=== PATIENT | female | born 2000 | race Caucasian/White ===

== ENCOUNTER 2018-05-18 23:03 | Inpatient (IN) | payer OTHER, SELFPAY ==
[2018-05-18] MEDS ORDERED: Sodium Bicarb 50 MEQ/50 ML Abboject 8.4% SYRINGE ONE ×3 (23:10→23:21)
[2018-05-18] MEDS ORDERED: Sodium Bicarbonate 2.5 MEQ/5 ML VIAL ONE (23:10)
[2018-05-18] MEDS ORDERED: Sodium Bicarbonate 150 MEQ in Dextrose 5% in Water 1,000 ML IV SCH (23:15)
[2018-05-18 23:21] LABS: Base Excess-Venous 1.3 mmol/L (0 (+/- 2.5)); Bicarbonate (HCO3v) 26.7 mmol/L (1.0-85.0); CO2 Tension (PvCO2) 44.7 mmHg (41.0-51.0); Calcium, Ionized 0.99 mmol/L (1.12-1.32); Hemoglobin - Calc 10.5 g/dL (12.0-18.0); O2 Tension (PvO2) 207.1 mmHg (35.0-45.0); Potassium 3.3 mmol/L (3.4-4.7); T. Carbon Dioxide 28.1 mmol/L (1.0-85.0); pH (Venous) 7.385 (7.35-7.45); vO2 Saturation-calc 99.7 % (94-98)
--- NOTE | 2018-05-18 23:32 | RAD ---
ONE VIEW CHEST: 05/18/18 HISTORY: Status post intubation. Patient overdosed. COMPARISON: None. FINDINGS: Endotracheal tube at the level of the clavicles. Nasogastric tube extends Down the diaphragm. Distal tip is not seen. Normal cardiac silhouette. No consolidation or mass. No p leural effusion. No pneumothorax on this supine projection. No osseous abnormalities. IMPRESSION: Endotracheal tube and nasogastric tube as above. POS: [facility]
[2018-05-18] MEDS ORDERED: Propofol 1,000 MG/100 ML VIAL IV ONE (23:44)
[2018-05-18] MEDS ORDERED: Midazolam HCl 2 mg/2 ml Vial ONE (23:51)
[2018-05-19] MEDS ORDERED: Sodium Bicarb 50 MEQ/50 ML Abboject 8.4% SYRINGE ONE (00:10)
[2018-05-19] MEDS ORDERED: Midazolam HCl 2 mg/2 ml Vial ONE (00:20)
[2018-05-19 00:44] LABS: #Eosinphils 0.2 thou/uL (0.0-0.7); #Lymphocytes 1.2 thou/uL (1.20-3.40); #Monocytes 0.4 thou/uL (0.11-0.59); #Neutrophils 4.5 thou/uL (1.40-6.50); %Basophils 0.5 % (0.0-1.0); %Lymphocytes 18.8 % (28.0-48.0); %Monocytes 6.6 % (0.0-4.0); %Neutrophils 71.1 % (31.0-61.0); Hemoglobin 9.9 g/dL (12.0-16.0); Mean Corpuscular HGB CONC 32.6 g/dL (32.0-36.0); Mean Corpuscular Hemoglobin 25.5 pg (25.0-35.0); Mean Corpuscular Volume 78.4 fL (78.0-98.0); Mean Platelet Volume 9.4 fL (7.4-10.4); Platelet Count 164 thou/uL (130-400); RBC Distribution Width 15.9 % (11.5-14.5); Red Blood Cell (RBC) Count 3.86 mill/uL (4.00-5.20); White Blood Cell (WBC) Count 6.3 thou/uL (4.8-10.8)
[2018-05-19 00:52] LABS: ALT (SGPT) 19 U/L (8-55); AST (SGOT) 25 U/L (5-30); Acetaminophen Less than 6.0 mcg/mL (10.0-30.0); Alcohol Less than 10 mg/dL (Less than 10); Alkaline Phosphatase 97 U/L (40-150); BUN (Urea Nitrogen) 11 mg/dL (8.4-21.0); Bilirubin, Total 0.3 mg/dL (0.2-1.2); Calc. Creatinine Clearance 0 mL/min (70-130); Calcium 8.6 mg/dL (7.8-10.44); Carbon Dioxide 27 mmol/L (22-29); Estimated GFR-MDRD Greater than 90; Glucose 114 mg/dL (70-105); Salicylate Less than 8.0 mg/dL (15.0-30.0)
[2018-05-19] MEDS ORDERED: Propofol 1,000 MG/100 ML VIAL IV ONE (00:54)
[2018-05-19 01:02] LABS: Anion Gap 14 mmol/L (10-20); Chloride 105 mmol/L (98-107); Potassium 3.4 mmol/L (3.5-5.1); Sodium 141 mmol/L (136-145)
[2018-05-19 01:33] LABS: Bilirubin Negative (Negative); Blood, Urine Negative (Negative); Clarity TURBID (Clear); Glucose, Urine (Dipstick) Negative (Negative); Leukocyte Negative (Negative); Nitrite Negative (Negative); Pregnancy Test - Urine (BHCG) Negative (Negative); Pregu Control Background? CLEAR/WHITE (CLR/WHITE); Pregu Control Bar Appear? YES (CONTROL BAR); Protein, Urine (Dipstick) Negative (Neg-Trace); Specific Gravity 1.011 (1.002-1.036); Specific Gravity, Urine 1.011 (1.002-1.036); Urobilinogen 0.2 mg/dL (0.2-1.0); pH, Urine 7.5 (5.0-9.0)
[2018-05-19] MEDS ORDERED: Propofol BOLUS 1,000 MG/100 ML VIAL IV PRN (01:40)
[2018-05-19] MEDS ORDERED: fentaNYL Citrate/PF 2,000 MCG in Sodium Chloride 0.9% 60 ML IV SCH (01:40)
[2018-05-19] MEDS ORDERED: Lorazepam 2 MG/ML VIAL SLOW IVP PRN (01:40)
[2018-05-19] MEDS ORDERED: Fentanyl BOLUS 250 ML IVPB PRN (01:40)
[2018-05-19 01:41] LABS: Amphetamine Not Detected (NotDetected); Barbiturates Screen Not Detected (NotDetected); Benzodiazepine Screen Not Detected (NotDetected); Cocaine Metabolite Screen Not Detected (NotDetected); Medtox Control Line Valid? VALID (VALID); Medtox Reader # READER 1; Methadone Not Detected (NotDetected); Methamphetamine Not Detected (NotDetected); Opiate Screen Not Detected (NotDetected); Oxycodone Screen Not Detected (NotDetected); Phencyclidine (PCP) Not Detected (NotDetected); THC/Cannabinoid Screen Not Detected (NotDetected); Tricyclic Screen Not Detected (NotDetected)
[2018-05-19] MEDS: Propofol 1,000 MG/100 ML VIAL IV PRN ×2 (02:14→05:54)
[2018-05-19] MEDS: Sodium Chloride 0.9% 1,000 ML IV SCH ×3 (02:21→09:51)
[2018-05-19 02:32] LABS: pH, Arterial 7.59 (7.35-7.45)
[2018-05-19 02:33] LABS: ALV-art Gradient 55.125 (0-20); Actual Bicarbonate (HCO3a) 23.8 mEq/L (22-28); Base Excess (BEa) 2.5 mEq/L (-2.0 to +3.0); CO2 Tension 25.5 mmHg (35.0-45.0); Hematocrit-ABG 31.1 % (34.0-44.0); Hemoglobin (Hb) 9.5 g/dL (11.4-15.4); O2 Tension (PaO2) 198.2 mmHg (80.0-100.0); Puncture Site RBRACH
[2018-05-19] MEDS ORDERED: Bisacodyl 10 MG SUPP PR PRN (03:59)
--- NOTE | 2018-05-19 05:23 | HP ---
PRIMARY CARE PHYSICIAN: The patient does not have a PCP. CHIEF COMPLAINT: Suicide attempt. HISTORY OF PRESENT ILLNESS: This 17-year-old female with a history of bipolar disorder prior suicide attempt, mostly with cutting, who presented after being found unarousable by family at 10:00 in the evening. It appears that EMS was called. The patient was intubated in the field with ketamine in ro ck secondary to failure to protect her own airway. The patient had left a suicide note indicating th at this was indeed a suicide attempt and outlining that she had taken 54 pills of 25 mg each amitript yline. In the emergency department, the patient was started on a bicarbonate drip including 3 amps or 150 mE q of bicarbonate and 1 liter normal saline and given a bolus of 3 liters IV fluid. She was started o n a Versed drip and propofol. At the time of my evaluation, the Versed drip has been titrated off. The patient is unable to give a history and she has no family at bedside at this point in time. The patient is intubated and sedated. REVIEW OF SYSTEMS: Unable to obtain secondary to the above. PAST MEDICAL HISTORY: As noted above. Otherwise, no further information available. PAST SURGICAL HISTORY: No prior surgical history. HOME MEDICATIONS: None are currently available beyond her access known to amitriptyline. The family did check medications at home and appears that the patient did not seem to have taken either ibuprof en or acetaminophen at home or any other family members medications during overdose of suicide attemp t. FAMILY HISTORY: No other family history known of suicide attempts. SOCIAL HISTORY: No alcohol, no tobacco, no illicit drug use. Otherwise, social history as above. PHYSICAL EXAMINATION: GENERAL: The patient is intubated, sedated, nonconversant. HEENT: Normocephalic, atraumatic. Slightly dry mucous membranes. ET tube appears in appropriate po sition. CARDIOVASCULAR: S1, S2. No murmurs, rubs or gallops. Pulses 2+ bilateral upper extremities, no pit ting pedal edema. RESPIRATORY: Limited anterior examination. No wheezes, rales or rhonchi. Coarse ventilator sounds throughout. ABDOMEN: Positive bowel sounds and soft. MUSCULOSKELETAL: The patient is currently sedated. LABORATORY DATA AND IMAGING: WBC 6.3, hemoglobin 9.9, hematocrit 30.2, platelet of 164. ABG: a pH of 7.59, pCO2 of 25.5, pO2 of 198. Sodium 141, potassium 3.4, chloride 105, bicarbonate 27, anion ga p of 14, BUN of 11, creatinine 0.66, glucose 114, calcium 8.6, total bilirubin 0.3, AST 25, ALT 19, a lkaline phosphatase 97, total protein 7.0, albumin 4.0. UA significant for ketones of 15. Toxicolog y is essentially negative including salicylate less than 8, acetaminophen less than 6. Plasma alcoho l less than 10. On 05/18/2018, chest x-ray. Impression: "Endotracheal tube and nasogastric tube as above." ASSESSMENT AND PLAN: This is a 17-year-old female, who presented with amitriptyline overdose. The p atient has been intubated to "protect her airway," which suggests that the patient had progressed in her overdose to a stuporous state upon evaluation by EMS. Given the timeframe between potential ashu stion and presentation, no activated charcoal was recommended per Poison Control. Poison Control was contacted by the emergency department as well. The patient has been started on a bicarbonate drip a s noted above. EKGs that I am able to view from the ER department did not demonstrate a QRS complex wider than 100. The patient is currently continued on telemetry and we will continue with serial EKG s. Since the patient is on bicarbonate drip, we will closely monitor the patient's ABG, specifically the patient's pH. Arrange tight goal of 7.5 to 7.55 is desired. As the patient has maintained narr ow QRS complex, if that is continued with the next EKG, we consider down titrating the patient's bica rbonate drip by 25%. I discussed the above with the patient's bedside care team. A consultation for critical care appreciated. 1. Suicide attempt in the setting of bipolar disorder and prior suicidal ideation. The patient will certainly require a psychiatric screening prior to discharge. The patient has not demonstrated any evidence of seizures so far as described per EMS or ER staffing. We will continue to closely monitor the patient's neurological status with benzodiazepines as needed and if needed for any agitation or concern for seizures. 2. Diet: N.p.o. to consider tube feeds if patient requires prolonged intubation. 3. Activity: Currently on bed rest secondary to a need for ventilator support. 4. Deep venous thrombosis prophylaxis. The patient with an extremely guarded prognosis given the agent for her overdose. The patient is cur rently FULL CODE.
[2018-05-19] MEDS ORDERED: Sodium Bicarbonate 150 MEQ in Dextrose 5% in Water 1,000 ML IV SCH (05:30)
[2018-05-19 08:23] LABS: Actual Bicarbonate (HCO3a) 27.1 mEq/L (22-28); Base Excess (BEa) 2.8 mEq/L (-2.0 to +3.0); CO2 Tension 40.1 mmHg (35.0-45.0); O2 Tension (PaO2) 110.8 mmHg (80.0-100.0); pH, Arterial 7.45 (7.35-7.45)
[2018-05-19 08:24] LABS: Hemoglobin (Hb) 10.1 g/dL (11.4-15.4)
[2018-05-19 08:25] LABS: Puncture Site RRA
[2018-05-19 08:26] LABS: ALV-art Gradient 52.975 (0-20)
[2018-05-19] MEDS ORDERED: DC Sedation Protocol FS ONE (08:32)
[2018-05-19] MEDS ORDERED: Sodium Chloride 0.9% 1,000 ML IV SCH (08:33)
--- NOTE | 2018-05-19 09:12 | PDOC.PN ---
- Subjective Encounter Start Date: 05/19/18 Encounter Start Time: 09:10 Ms. Rea was seen today in follow-up of Amitryptiline overdose. She is now extubated. She is drowsy, but follows some simple commands. - Objective Resuscitation Status: Resuscitation Status FULL:Full Resuscitation MAR Reviewed: Yes Vital Signs & Weight: Vital Signs (12 hours) Temp Pulse Resp Pulse Ox 05/19/18 08:30 105 H 17 100 05/19/18 04:09 98 F 82 10 L 99 05/19/18 04:00 98 F 10 L 05/19/18 02:34 84 05/19/18 02:00 97.9 F Most Recent Monitor Data Heart Rate from ECG 127 NIBP 139/93 NIBP BP-Mean 109 Respiration from ECG 26 SpO2 97 I&O: 05/18/18 05/19/18 05/20/18 06:59 06:59 06:59 Intake Total 0 2273 Output Total 715 125 Balance -715 2148 Result Diagrams: 05/18/18 23:12 05/18/18 23:12 Phys Exam - Physical Examination HEENT: PERRLA Respiratory: no wheezing, no rales, no rhonchi, clear to auscultation bilateral Cardiovascular: RRR, no significant murmur, no rub Gastrointestinal: soft, non-tender, no distention, positive bowel sounds Musculoskeletal: no edema Dx/Plan (1) Suicide attempt Status: Acute (2) Tricyclic overdose Code(s): T43.011A - POISONING BY TRICYCLIC ANTIDEPRESSANTS, ACCIDENTAL, INIT Status: Acute (3) Bipolar disorder Code(s): F31.9 - BIPOLAR DISORDER, UNSPECIFIED Status: Acute - Plan * Tricyclic overdose- the patient is now extubated * She has not experienced any malignant arrhythmia overnight, agree with discontinuing the bicarbonate * Once she is more alert will consider moving out of the ICU, with a sitter, and then get [facility] Consultation
[2018-05-19] MEDS ORDERED: Potassium Chloride 20 MEQ TAB PO SCH ×2 (09:30→12:45)
[2018-05-19] MEDS: Heparin 5,000 UNITS/ML VIAL SC SCH ×3 (09:53→21:52)
[2018-05-19] MEDS: Famotidine/PF 20 mg/2ml Vial SLOW IVP SCH ×2 (09:55→21:52)
--- NOTE | 2018-05-19 16:20 | CON ---
DATE OF CONSULTATION: 05/19/2018 Emperatriz Rea is a 17-year-old female who has not been in this hospital before presented to the ER w ith intentional overdose. The patient was intubated by the EMS. The patient had a longstanding hist ory of depression. She apparently took unknown quantity but appears to be amitriptyline 25 mg to 45 mg two prescription bottle about 30 tablets. She is not responsive and apparently intubated. Drug screen shows no Tylenol, alcohol or any other substance abuse. She now has been in the ICU since about 1:00 in the morning. On arrival, respirations are 16, sats are 100% on the ventilator, blood pressure was 122/87. Upon ar rival to the ICU, we stopped the sedation Diprivan. She became more responsive, appeared to be quite appropriate. She is on a bicarbonate drip. Pulse 115, blood pressure 133/70, sats are 100%, respir ations 17. She nods appropriately. PAST MEDICAL HISTORY: No history of any diabetes, hypertension, history of chronic depression. PAST SURGICAL HISTORY: Apparently none. We will get additional information from the family when the y arrive. ALLERGIES: Apparently unknown. SOCIAL HISTORY: Tobacco, alcohol, and drugs unknown. REVIEW OF SYSTEMS: Unobtainable. PHYSICAL EXAMINATION: VITAL SIGNS: At the bedside, put on CPAP, she was breathing on her own. She was extubated while I wa s at the bedside, constant monitoring. Her pulse 115, blood pressure 130/96, sats are 100%, respirat ions 20. EXTREMITIES: Post-extubation, she is appropriate. Moves all 4 extremities. Nods her head, sticks t he tongue out. CHEST: Reveals no wheezing or crackles. CARDIAC: Normal S1, S2. No gallops. ABDOMEN: Soft, no masses. Chemistry profile over the last night was unremarkable. Her blood gas showed a pO2 was 110, pCO2 of . White count 6000, H and H 9 and 30, platelet count 164. LABORATORY DATA AND X-RAY FINDINGS: Chest x-ray was normal. IMPRESSION: 1. Status post intentional overdose of amitriptyline. 2. Previous history of major depression. PLAN: We will try and get additional information from the family. We will keep her in the ICU. She is going to need [facility] counseling and input from psychiatry. Bicarb was discontinued. Continue IV fluids. Eventually placement. This is a 45-minute critical care time.
[2018-05-20 06:42] LABS: #Basophils 0.1 thou/uL (0.0-0.2); #Eosinphils 0.1 thou/uL (0.0-0.7); #Lymphocytes 1.2 thou/uL (1.20-3.40); #Neutrophils 9.5 thou/uL (1.40-6.50); %Basophils 0.4 % (0.0-1.0); %Eosinophils 1.2 % (0.0-10.0); %Lymphocytes 9.9 % (28.0-48.0); %Monocytes 8.4 % (0.0-4.0); %Neutrophils 80.1 % (31.0-61.0); Hemoglobin 10.8 g/dL (12.0-16.0); Mean Corpuscular HGB CONC 31.2 g/dL (32.0-36.0); Mean Corpuscular Hemoglobin 24.8 pg (25.0-35.0); Mean Corpuscular Volume 79.5 fL (78.0-98.0); Mean Platelet Volume 9.3 fL (7.4-10.4); Platelet Count 161 thou/uL (130-400); RBC Distribution Width 16.1 % (11.5-14.5); Red Blood Cell (RBC) Count 4.34 mill/uL (4.00-5.20); White Blood Cell (WBC) Count 11.9 thou/uL (4.8-10.8)
[2018-05-20 06:53] LABS: Anion Gap 13 mmol/L (10-20); BUN (Urea Nitrogen) 4 mg/dL (8.4-21.0); Calc. Creatinine Clearance 154 mL/min (70-130); Calcium 9.1 mg/dL (7.8-10.44); Carbon Dioxide 20 mmol/L (22-29); Chloride 106 mmol/L (98-107); Estimated GFR-MDRD Greater than 90; Glucose 73 mg/dL (70-105); Potassium 3.3 mmol/L (3.5-5.1); Sodium 136 mmol/L (136-145)
[2018-05-20] MEDS ORDERED: Acetaminophen 650 MG Suppository PR PRN (08:30)
--- NOTE | 2018-05-20 08:33 | PDOC.PN ---
- Subjective Encounter Start Date: 05/20/18 Encounter Start Time: 08:31 Ms. Rea was seen today in follow-up of TCA overdose. She is complaining of a headache, and she says she hurts " all over". She admits to feeling short of breath, and she also complains of chest pain, and upper abdominal pain. - Objective Resuscitation Status: Resuscitation Status FULL:Full Resuscitation MAR Reviewed: Yes Vital Signs & Weight: Vital Signs (12 hours) Temp 05/20/18 04:00 97.7 F 05/20/18 00:00 99.4 F Most Recent Monitor Data Heart Rate from ECG 130 NIBP 120/85 NIBP BP-Mean 108 Respiration from ECG 36 SpO2 91 I&O: 05/19/18 05/20/18 05/21/18 06:59 06:59 06:59 Intake Total 0 3436 50 Output Total 715 2130 100 Balance -715 1306 -50 Result Diagrams: 05/20/18 06:33 05/20/18 06:33 Phys Exam - Physical Examination HEENT: PERRLA, sclera anicteric + rales at the left base, and decreased breath sounds, + expiratory wheeze Cardiovascular: RRR, no significant murmur tachycardia Gastrointestinal: soft, non-tender, positive bowel sounds Musculoskeletal: no edema Dx/Plan (1) Suicide attempt Status: Acute (2) Tricyclic overdose Code(s): T43.011A - POISONING BY TRICYCLIC ANTIDEPRESSANTS, ACCIDENTAL, INIT Status: Acute (3) Bipolar disorder Code(s): F31.9 - BIPOLAR DISORDER, UNSPECIFIED Status: Acute (4) Fever Code(s): R50.9 - FEVER, UNSPECIFIED Status: Acute (5) Sinus tachycardia Code(s): R00.0 - TACHYCARDIA, UNSPECIFIED Status: Acute - Plan * TCA Overdose- She is still having some sinus tachycardia, the TCA's should be out of her system * She had some fever, and tachycardia- will check a set of blood cultures, as well as a Chest X-ray * Will place her on Augmentin Empirically for possible aspiration * Will re-start her fluids * Mobilize.
[2018-05-20] MEDS ORDERED: traMADol HCl 50 MG TAB PO PRN (08:40)
[2018-05-20] MEDS ORDERED: Lorazepam 0.5 MG TAB PO PRN (08:43)
[2018-05-20] MEDS ORDERED: Lorazepam 1 MG TAB PO PRN (08:43)
[2018-05-20] MEDS ORDERED: Lorazepam 2 MG/ML VIAL SLOW IVP SCH (08:45)
[2018-05-20] MEDS ORDERED: Amoxicillin/Potassium Clav 875 MG TAB PO SCH (09:00)
[2018-05-20] MEDS ORDERED: Piperacillin/Tazobactam 3.375 GM in Sodium Chloride 0.9% 100 ML IVPB SCH (09:00)
[2018-05-20] MEDS: Sodium Chloride 0.9% 1,000 ML IV SCH ×2 (09:04→16:07)
[2018-05-20] MEDS: Acetaminophen 325 MG TAB PO PRN ×2 (09:07→12:30)
[2018-05-20] MEDS: Famotidine 20 MG TAB PO SCH ×2 (09:07→20:15)
[2018-05-20] MEDS: Piperacillin/Tazobactam 3.375 GM in Sodium Chloride 0.9% 100 ML IVPB SCH ×3 (09:10→20:16)
[2018-05-20] MEDS: Potassium Chloride 20 MEQ in Premix Bag 1 BAG IVPB SCH ×2 (09:15→11:12)
--- NOTE | 2018-05-20 09:25 | PRG ---
DATE OF SERVICE: 05/20/2018 This morning she is awake and responsive, lethargic. A cough with some yellow sputum. PHYSICAL EXAMINATION: VITAL SIGNS: Her sats are low, blood pressure 120/80, pulse 135, respirations 18. CHEST: Chest revealed bilateral rhonchi and crackles. CARDIAC: Sinus tachycardia. ABDOMEN: Soft. LABORATORY DATA: Creatinine is normal. Potassium is 3.3, white count 9000, 80 segs. X-ray shows no w new bilateral pulmonary infiltrates. IMPRESSION: 1. Status post respiratory failure. 2. Status post overdose on Elavil. 3. Aspiration pneumonia. PLAN: I agree with antibiotics, neb treatments, supportive care. I will follow. Culture sputum. Keep in the ICU another 24 hours.
[2018-05-20] MEDS: Enoxaparin Sodium 40 MG/0.4 ML SYRINGE SC SCH (09:30)
--- NOTE | 2018-05-20 09:30 | RAD ---
RADIOGRAPH CHEST 1 VIEW: Date: 05/20/18. Time: 8:27 a.m. HISTORY: A 17-year-old female with fever and tachycardia. COMPARISON: 05/18/18. FINDINGS: ETT and NGT have been removed. No evidence of pneumothorax. New finding of increased attenuation at the bilateral lung bases, especially retrocardiac portion of left lower lobe. Silhouetting of most of the right hemidiaphragm by the partial opacification. Mid and upper lung zones are clear. No pul monary vascular engorgement. IMPRESSION: 1. Status post extubation, with removal of endotracheal tube and nasogastric tube. 2. Interval development of increased attenuation at the bilateral lower lobes, either atelectasis or pneumonia. JN [] POS: [facility]
[2018-05-20] MEDS ORDERED: Ibuprofen 800 MG TAB PO PRN (13:48)
--- NOTE | 2018-05-20 19:51 | EKG ---
Test Reason : Blood Pressure : / mmHG Vent. Rate : 103 BPM Atrial Rate : 103 BPM P-R Int : 176 ms QRS Dur : 096 ms QT Int : 364 ms P-R-T Axes : 035 030 010 degrees QTc Int : 476 ms Sinus tachycardia Nonspecific ST abnormality When compared with ECG of 19-MAY-2018 15:28, (Unconfirmed) No significant change was found Confirmed by DR. Jaimee GAY (3) on 05/20/2018 7:50:45 PM Referred By: LEMUEL Confirmed By:DR. Jaimee GAY
--- NOTE | 2018-05-20 19:55 | EKG ---
Test Reason : HIGH HR Blood Pressure : / mmHG Vent. Rate : 135 BPM Atrial Rate : 135 BPM P-R Int : 148 ms QRS Dur : 088 ms QT Int : 270 ms P-R-T Axes : 037 032 011 degrees QTc Int : 405 ms Sinus tachycardia Abnormal ECG When compared with ECG of 19-MAY-2018 22:13, (Unconfirmed) T wave inversion now evident in Anterior leads Confirmed by DR. Jaimee GAY (3) on 05/20/2018 7:54:43 PM Referred By: LEMUEL Confirmed By:DR. Jaimee GAY
[2018-05-21] MEDS: Piperacillin/Tazobactam 3.375 GM in Sodium Chloride 0.9% 100 ML IVPB SCH ×4 (04:20→20:47)
[2018-05-21 05:13] LABS: #Eosinphils 0.2 thou/uL (0.0-0.7); #Lymphocytes 1.3 thou/uL (1.20-3.40); #Neutrophils 13.2 thou/uL (1.40-6.50); %Basophils 0.2 % (0.0-1.0); %Lymphocytes 8.4 % (28.0-48.0); %Monocytes 6.5 % (0.0-4.0); %Neutrophils 83.8 % (31.0-61.0); Hemoglobin 11.7 g/dL (12.0-16.0); Mean Corpuscular HGB CONC 31.8 g/dL (32.0-36.0); Mean Corpuscular Volume 78.7 fL (78.0-98.0); Mean Platelet Volume 8.9 fL (7.4-10.4); Platelet Count 192 thou/uL (130-400); RBC Distribution Width 16.3 % (11.5-14.5); Red Blood Cell (RBC) Count 4.66 mill/uL (4.00-5.20); White Blood Cell (WBC) Count 15.7 thou/uL (4.8-10.8)
[2018-05-21 05:23] LABS: Anion Gap 14 mmol/L (10-20); BUN (Urea Nitrogen) 5 mg/dL (8.4-21.0); Calc. Creatinine Clearance 150 mL/min (70-130); Calcium 9.7 mg/dL (7.8-10.44); Carbon Dioxide 19 mmol/L (22-29); Chloride 108 mmol/L (98-107); Estimated GFR-MDRD Greater than 90; Glucose 88 mg/dL (70-105); Sodium 137 mmol/L (136-145)
[2018-05-21] MEDS ORDERED: Topiramate 25 MG TAB PO PRN (08:27)
--- NOTE | 2018-05-21 08:42 | PRG ---
DATE OF SERVICE: 05/21/2018 Still having difficulty breathing. Her sats were low yesterday. Briefly, she was on a BiPAP. PHYSICAL EXAMINATION: VITAL SIGNS: She is still tachycardic at 135, blood pressure 119/74, respiration 27, sats 94%. She says she is better. CHEST: Chest reveals decreased breath sounds, bilateral rhonchi. CARDIAC: Sinus tachycardia. ABDOMEN: Soft, without any masses. NEURO: Neurologically awake, alert, responsive, moves all 4 extremities. IMPRESSION: 1. Bilateral pneumonia. 2. Status post overdose of amitriptyline. 3. Baseline depression. 4. Major underlying chronic pain. PLAN: I would restart the home medicine. Continue antibiotics, neb treatments, and supportive care. Repeat chest x-ray. We will keep her in the ICU for another 24-48 hours. One-half hour critical care time.
[2018-05-21] MEDS: Enoxaparin Sodium 40 MG/0.4 ML SYRINGE SC SCH (09:08)
[2018-05-21] MEDS: Bupropion 150 MG XL TAB PO SCH (09:08)
[2018-05-21] MEDS: Famotidine 20 MG TAB PO SCH ×2 (09:08→20:46)
[2018-05-21] MEDS: Sodium Chloride 0.9% 1,000 ML IV SCH (09:14)
--- NOTE | 2018-05-21 10:01 | RAD ---
PORTABLE AP CHEST XRAY: DATE: 05/21/18. HISTORY: Pneumonia. COMPARISON: 05/20/18. FINDINGS: Again noted is increased density at each lung base similar to the prior exam with greater increased d ensity at the left lung base in a retrocardiac location. Cardiac silhouette is magnified by projecti on. Pulmonary vasculature is within normal limits. Gas density overlies the left upper quadrant lik yessy related to gaseous distention of loops of bowel. There has been no interval change compared to t he prior exam. IMPRESSION: Stable chest with increased density in each lung base which may be related to either atelectasis or p neumonia. Continued followup to complete resolution is recommended. POS: [facility]
--- NOTE | 2018-05-21 14:06 | PDOC.PN ---
- Subjective Encounter Start Date: 05/21/18 Encounter Start Time: 13:00 Subjective: pt up in bed no complains - Objective Resuscitation Status: Resuscitation Status FULL:Full Resuscitation Vital Signs & Weight: Vital Signs (12 hours) Temp Pulse Resp Pulse Ox 05/21/18 13:26 120 H 24 H 98 05/21/18 08:00 99.5 F 128 H 36 H 98 05/21/18 07:15 96 05/21/18 07:13 106 H 31 H 96 05/21/18 04:00 99.9 F H Most Recent Monitor Data Heart Rate from ECG 123 NIBP 106/71 NIBP BP-Mean 89 Respiration from ECG 30 SpO2 99 I&O: 05/20/18 05/21/18 05/22/18 06:59 06:59 06:59 Intake Total 3436 2618 150 Output Total 2130 1845 200 Balance 1306 773 -50 Result Diagrams: 05/21/18 05:00 05/21/18 05:00 Phys Exam - Physical Examination HEENT: PERRLA, moist MMs, sclera anicteric, TM's clear, oral pharynx no lesions , 2+ tonsils Neck: no nodes, no JVD, supple, full ROM Respiratory: no wheezing, no rales, no rhonchi, wheezing present, clear to auscultation bilateral tachycardia Gastrointestinal: soft, non-tender, no distention, positive bowel sounds Musculoskeletal: no edema, pulses present, edema present Dx/Plan (1) Suicide attempt Status: Acute (2) Tricyclic overdose Code(s): T43.011A - POISONING BY TRICYCLIC ANTIDEPRESSANTS, ACCIDENTAL, INIT Status: Acute (3) Sinus tachycardia Code(s): R00.0 - TACHYCARDIA, UNSPECIFIED Status: Acute (4) Aspiration pneumonia Code(s): J69.0 - PNEUMONITIS DUE TO INHALATION OF FOOD AND VOMIT Status: Acute - Plan will continue abx for now. pt still is sinus tachy. Home meds started. -: pt is asymtomatic. will need to go to inpatient psy unit for sucide attempt * . Review of Systems - Review of Systems Eyes: negative: Pain, Vision Change, Conjunctivae Inflammation, Eyelid Inflammation, Redness, Other ENT: negative: Ear Pain, Ear Discharge, Nose Pain, Nose Discharge, Nose Congestion, Mouth Pain, Mouth Swelling, Throat Pain, Throat Swelling, Other Respiratory: negative: Cough, Dry, Shortness of Breath, Hemoptysis, SOB with Excertion, Pleuritic Pain, Sputum, Wheezing Cardiovascular: negative: chest pain, palpitations, orthopnea, paroxysmal nocturnal dyspnea, edema, light headedness, other Gastrointestinal: negative: Nausea, Vomiting, Abdominal Pain, Diarrhea, Constipation, Melena, Hematochezia, Other - Medications/Allergies Allergies/Adverse Reactions: Allergies Allergy/AdvReac Type Severity Reaction Status Date / Time banana Allergy Verified 05/19/18 04:44 mirtazapine [From Remeron] Allergy Verified 05/18/18 23:11 Medications: Current Medications Acetaminophen (Tylenol) 650 mg MA Q4H PRN PRN Reason: Headache/Fever or Pain Acetaminophen (Tylenol) 650 mg PO Q4H PRN PRN Reason: Headache/Fever or Pain Last Admin: 05/20/18 12:30 Dose: 650 mg Albuterol/Ipratropium (Duoneb) 3 ml NEB [id number] [facility] Last Admin: 05/21/18 13:26 Dose: 3 ml Amitriptyline HCl (Elavil) 25 mg PO HS [facility] Bisacodyl (Dulcolax) 10 mg MA Q24H PRN PRN Reason: Constipation Bupropion HCl (Wellbutrin Xl) 150 mg PO DAILY [facility] Last Admin: 05/21/18 09:08 Dose: 150 mg Enoxaparin Sodium (Lovenox) 40 mg SC 0900 [facility] Last Admin: 05/21/18 09:08 Dose: 40 mg Famotidine (Pepcid) 20 mg PO Q12HR [facility] Last Admin: 05/21/18 09:08 Dose: 20 mg Sodium Chloride (Normal Saline 0.9%) 1,000 mls @ 75 mls/hr IV .[id number] [facility] Last Admin: 05/21/18 09:14 Dose: 1,000 mls Piperacillin Sod/Tazobactam (Sod 3.375 gm/ Sodium Chloride) 100 mls @ 200 mls/ hr IVPB 0300,0900,1500,2100 [facility] Last Admin: 05/21/18 09:09 Dose: 100 mls Ibuprofen (Motrin) 800 mg PO Q8H PRN PRN Reason: Fever/Mild Pain Last Admin: 05/20/18 13:57 Dose: 800 mg Prazosin HCl (Minipress) 2 mg PO QPM [facility] Sodium Chloride (Flush - Normal Saline) 10 ml IVF Q12HR [facility] Last Admin: 05/21/18 09:09 Dose: 10 ml Sodium Chloride (Flush - Normal Saline) 10 ml IVF PRN PRN PRN Reason: Saline Flush Topiramate (Topamax) 50 mg PO BID PRN PRN Reason: Migraine Headache Tramadol HCl (Ultram) 50 mg PO Q6H PRN PRN Reason: Pain
[2018-05-21] MEDS: Amitriptyline HCl 25 MG TAB PO SCH (20:46)
[2018-05-21] MEDS ORDERED: Prazosin HCl 1 MG CAP PO SCH (21:00)
[2018-05-22] MEDS: Piperacillin/Tazobactam 3.375 GM in Sodium Chloride 0.9% 100 ML IVPB SCH ×4 (03:58→21:30)
[2018-05-22] MEDS: Sodium Chloride 0.9% 1,000 ML IV SCH ×2 (04:05→14:14)
[2018-05-22 05:08] LABS: #Eosinphils 0.5 thou/uL (0.0-0.7); #Monocytes 0.9 thou/uL (0.11-0.59); #Neutrophils 8.6 thou/uL (1.40-6.50); %Basophils 0.4 % (0.0-1.0); %Eosinophils 3.9 % (0.0-10.0); %Lymphocytes 16.7 % (28.0-48.0); %Monocytes 7.6 % (0.0-4.0); %Neutrophils 71.4 % (31.0-61.0); Hemoglobin 9.6 g/dL (12.0-16.0); Mean Corpuscular Hemoglobin 25.2 pg (25.0-35.0); Mean Corpuscular Volume 78.9 fL (78.0-98.0); Mean Platelet Volume 8.8 fL (7.4-10.4); Platelet Count 183 thou/uL (130-400); RBC Distribution Width 16.2 % (11.5-14.5); Red Blood Cell (RBC) Count 3.82 mill/uL (4.00-5.20)
[2018-05-22 05:25] LABS: Anion Gap 12 mmol/L (10-20); BUN (Urea Nitrogen) 7 mg/dL (8.4-21.0); Calc. Creatinine Clearance 172 mL/min (70-130); Calcium 8.9 mg/dL (7.8-10.44); Carbon Dioxide 21 mmol/L (22-29); Chloride 107 mmol/L (98-107); Estimated GFR-MDRD Greater than 90; Glucose 87 mg/dL (70-105); Potassium 3.6 mmol/L (3.5-5.1); Sodium 136 mmol/L (136-145)
[2018-05-22] MEDS: Enoxaparin Sodium 40 MG/0.4 ML SYRINGE SC SCH (09:23)
[2018-05-22] MEDS: Bupropion 150 MG XL TAB PO SCH (09:23)
[2018-05-22] MEDS: Famotidine 20 MG TAB PO SCH ×2 (09:23→21:30)
--- NOTE | 2018-05-22 12:29 | PRG ---
DATE OF SERVICE: 05/22/2018 SERVICE: Pulmonary Medicine. INTERVAL HISTORY: The patient is doing fine from a respiratory standpoint. She denies any chest filomena n, nausea, vomiting, fevers or chills. She is breathing comfortably. Her heart rate has settled estelle n beautifully over the last 24 hours. She no longer nearly is tachycardic. She is eating okay. Mob ilization efforts have been slowed down because whenever she gets out of bed, she is little dizzy. PHYSICAL EXAMINATION: VITAL SIGNS: Afebrile with T-max of 101.5 two days ago, pulse 114, blood pressure 102/68, respiratio ns 28, saturation 100% on room air. GENERAL: The patient is awake, alert, no apparent distress. LUNGS: Decent air entry. Rhonchi are present in the right base. No prolonged expiratory phase or w heezing is appreciated. HEART: Normal rate and regular. ABDOMEN: Soft, nontender and nondistended. Bowel sounds are positive. MUSCULOSKELETAL: No cyanosis or clubbing. No pitting in the bilateral lower extremities. NEUROLOGIC: Grossly nonfocal. LABORATORY DATA: WBC 12.0, hemoglobin 9.6 and platelets 183,000. Basic metabolic profile is essenti ally unremarkable. BNP 13.2. Blood cultures x2 are unremarkable. ASSESSMENT: 1. Community-acquired pneumonia. 2. Overdose secondary to amitriptyline. 3. Major depressive disorder. PLAN: We will continue antibiotics and some nebulized medications. We can transition her to the [facility] emetry unit. We will continue to watch her for the next 24-48 hours. If her heart rate continues to settle down, we can transition her over to p.o. medications and consider her for transition out of [facility]. Until that time comes, supportive measures will be continued.
--- NOTE | 2018-05-22 16:43 | PDOC.PN ---
- Subjective Encounter Start Date: 05/22/18 Encounter Start Time: 16:00 Subjective: pt up in bed no complains - Objective Resuscitation Status: Resuscitation Status FULL:Full Resuscitation Vital Signs & Weight: Vital Signs (12 hours) Temp Pulse Resp BP Pulse Ox 05/22/18 15:47 95 05/22/18 14:07 97.8 F 116 H 16 102/60 95 05/22/18 13:13 107 H 26 H 98 05/22/18 08:00 98.0 F 93 23 H 100 05/22/18 07:38 99 05/22/18 07:35 93 27 H 99 Weight Weight 161 lb 6.054 oz Most Recent Monitor Data Heart Rate from ECG 102 NIBP 96/54 NIBP BP-Mean 68 Respiration from ECG 28 SpO2 99 I&O: 05/21/18 05/22/18 05/23/18 06:59 06:59 06:59 Intake Total 2618 2051 730 Output Total 1845 900 200 Balance 773 1151 530 Result Diagrams: 05/22/18 04:50 05/22/18 04:50 Phys Exam - Physical Examination HEENT: PERRLA, moist MMs, sclera anicteric, TM's clear, oral pharynx no lesions , 2+ tonsils Neck: no nodes, no JVD, supple, full ROM Cardiovascular: RRR, no significant murmur, no rub, gallop, irregular Gastrointestinal: soft, non-tender, no distention, positive bowel sounds Musculoskeletal: no edema, pulses present, edema present Dx/Plan (1) Suicide attempt Status: Acute (2) Tricyclic overdose Code(s): T43.011A - POISONING BY TRICYCLIC ANTIDEPRESSANTS, ACCIDENTAL, INIT Status: Acute (3) Sinus tachycardia Code(s): R00.0 - TACHYCARDIA, UNSPECIFIED Status: Acute (4) Aspiration pneumonia Code(s): J69.0 - PNEUMONITIS DUE TO INHALATION OF FOOD AND VOMIT Status: Acute - Plan pt doing well, mild sinus tachy -: will change abx to oral in am and will disconitnue fluids in am * . Review of Systems - Review of Systems Eyes: negative: Pain, Vision Change, Conjunctivae Inflammation, Eyelid Inflammation, Redness, Other ENT: negative: Ear Pain, Ear Discharge, Nose Pain, Nose Discharge, Nose Congestion, Mouth Pain, Mouth Swelling, Throat Pain, Throat Swelling, Other Respiratory: negative: Cough, Dry, Shortness of Breath, Hemoptysis, SOB with Excertion, Pleuritic Pain, Sputum, Wheezing Cardiovascular: negative: chest pain, palpitations, orthopnea, paroxysmal nocturnal dyspnea, edema, light headedness, other Gastrointestinal: negative: Nausea, Vomiting, Abdominal Pain, Diarrhea, Constipation, Melena, Hematochezia, Other Genitourinary: negative: Dysuria, Frequency, Incontinence, Hematuria, Retention , Other - Medications/Allergies Allergies/Adverse Reactions: Allergies Allergy/AdvReac Type Severity Reaction Status Date / Time banana Allergy Verified 05/19/18 04:44 mirtazapine [From Remeron] Allergy Verified 05/18/18 23:11 Medications: Current Medications Acetaminophen (Tylenol) 650 mg [place] Q4H PRN PRN Reason: Headache/Fever or Pain Acetaminophen (Tylenol) 650 mg PO Q4H PRN PRN Reason: Headache/Fever or Pain Last Admin: 05/20/18 12:30 Dose: 650 mg Albuterol/Ipratropium (Duoneb) 3 ml NEB [id number] [facility] Last Admin: 05/22/18 13:13 Dose: 3 ml Amitriptyline HCl (Elavil) 25 mg PO HS [facility] Last Admin: 05/21/18 20:46 Dose: 25 mg Bisacodyl (Dulcolax) 10 mg [place] Q24H PRN PRN Reason: Constipation Bupropion HCl (Wellbutrin Xl) 150 mg PO DAILY [facility] Last Admin: 05/22/18 09:23 Dose: 150 mg Enoxaparin Sodium (Lovenox) 40 mg SC 0900 [facility] Last Admin: 05/22/18 09:23 Dose: 40 mg Famotidine (Pepcid) 20 mg PO Q12HR [facility] Last Admin: 05/22/18 09:23 Dose: 20 mg Piperacillin Sod/Tazobactam (Sod 3.375 gm/ Sodium Chloride) 100 mls @ 200 mls/ hr IVPB 0300,0900,1500,2100 [facility] Last Admin: 05/22/18 14:51 Dose: 100 mls Sodium Chloride (Normal Saline 0.9%) 1,000 mls @ 50 mls/hr IV .Q20H [facility] Last Admin: 05/22/18 14:14 Dose: Not Given Ibuprofen (Motrin) 800 mg PO Q8H PRN PRN Reason: Fever/Mild Pain Last Admin: 05/20/18 13:57 Dose: 800 mg Sodium Chloride (Flush - Normal Saline) 10 ml IVF Q12HR [facility] Last Admin: 05/22/18 09:24 Dose: 10 ml Sodium Chloride (Flush - Normal Saline) 10 ml IVF PRN PRN PRN Reason: Saline Flush Topiramate (Topamax) 50 mg PO BID PRN PRN Reason: Migraine Headache Tramadol HCl (Ultram) 50 mg PO Q6H PRN PRN Reason: Pain
[2018-05-22] MEDS: Amitriptyline HCl 25 MG TAB PO SCH (21:30)
[2018-05-23] MEDS: Piperacillin/Tazobactam 3.375 GM in Sodium Chloride 0.9% 100 ML IVPB SCH ×2 (02:10→09:12)
[2018-05-23] MEDS: Sodium Chloride 0.9% 1,000 ML IV SCH (02:13)
[2018-05-23 06:00] LABS: #Eosinphils 0.6 thou/uL (0.0-0.7); #Monocytes 0.7 thou/uL (0.11-0.59); #Neutrophils 5.5 thou/uL (1.40-6.50); %Basophils 0.4 % (0.0-1.0); %Eosinophils 6.6 % (0.0-10.0); %Lymphocytes 22.2 % (28.0-48.0); %Monocytes 7.7 % (0.0-4.0); Hemoglobin 9.1 g/dL (12.0-16.0); Mean Corpuscular HGB CONC 32.1 g/dL (32.0-36.0); Mean Corpuscular Hemoglobin 25.3 pg (25.0-35.0); Mean Corpuscular Volume 78.9 fL (78.0-98.0); Mean Platelet Volume 8.4 fL (7.4-10.4); Platelet Count 207 thou/uL (130-400); RBC Distribution Width 16.3 % (11.5-14.5); White Blood Cell (WBC) Count 8.8 thou/uL (4.8-10.8)
[2018-05-23] MEDS: Enoxaparin Sodium 40 MG/0.4 ML SYRINGE SC SCH (09:12)
[2018-05-23] MEDS: Famotidine 20 MG TAB PO SCH ×2 (09:12→20:15)
[2018-05-23] MEDS: Bupropion 150 MG XL TAB PO SCH (09:12)
--- NOTE | 2018-05-23 10:22 | PRG ---
DATE OF SERVICE: 05/23/2018 She is better this morning. PHYSICAL EXAMINATION: VITAL SIGNS: Maximum temperature is 97.6. She is less short of breath. Sats 90% on room air, respi rations 16. She is still tachycardic at 103, blood pressure 114/70. CHEST: Chest reveals decreased breath sounds, no wheezing. CARDIAC: Normal S1, S2. No gallops. ABDOMEN: Soft, no masses. LABORATORY DATA: White count 8000, H&H 9 and 28, platelet count normal. Echo shows normal EF. IMPRESSION: 1. Status post overdose. 2. Bipolar depression. 3. Aspiration pneumonia. PLAN: Switch her to oral antibiotics. Baseline chest x-ray. Eventually [facility] consult. I will follow.
[2018-05-23] MEDS ORDERED: Iron Sucrose Complex 200 MG in Sodium Chloride 0.9% 250 ML 250 ML IVPB SCH (11:00)
[2018-05-23] MEDS ORDERED: Metoprolol Tartrate 25 MG TAB PO SCH (11:30)
--- NOTE | 2018-05-23 11:37 | RAD ---
TWO VIEWS CHEST: Comparison: 05-21-18 History: Pneumonia. FINDINGS: Two views of the chest shows a cardiomediastinal silhouette which is upper limits of normal in size. Opacities are seen in both lower lobes which may represent atelectasis or lower lobe infiltrates. IMPRESSION: Bilateral lower lobe atelectasis versus infiltrates. POS: [facility]
[2018-05-23 11:40] LABS: ALT (SGPT) 13 U/L (8-55); AST (SGOT) 18 U/L (5-30); Albumin 3.4 g/dL (3.5-5.0); Alkaline Phosphatase 102 U/L (40-150); Anion Gap 11 mmol/L (10-20); BUN (Urea Nitrogen) 7 mg/dL (8.4-21.0); Bilirubin, Total 0.3 mg/dL (0.2-1.2); Calc. Creatinine Clearance 171 mL/min (70-130); Calcium 8.7 mg/dL (7.8-10.44); Carbon Dioxide 24 mmol/L (22-29); Chloride 106 mmol/L (98-107); Estimated GFR-MDRD Greater than 90; Globulin 3.2 g/dL (2.4-3.5); Glucose 85 mg/dL (70-105); Potassium 3.4 mmol/L (3.5-5.1); Protein, Total 6.6 g/dL (6.0-8.3); Sodium 138 mmol/L (136-145)
[2018-05-23] MEDS ORDERED: Sodium Ferric Gluconate 250 MG in Sodium Chloride 0.9% 100 ML IVPB SCH (11:45)
--- NOTE | 2018-05-23 18:22 | PDOC.PN ---
- Subjective Encounter Start Date: 05/23/18 Encounter Start Time: 10:55 Subjective: pt up in bed no complains - Objective Resuscitation Status: Resuscitation Status FULL:Full Resuscitation Vital Signs & Weight: Vital Signs (12 hours) Temp Pulse Pulse Pulse Pulse Resp BP 05/23/18 15:53 98.5 F 95 16 05/23/18 11:22 135 H 101 H 122 H 102/59 L 05/23/18 11:01 97.7 F 107 H 16 05/23/18 09:11 97.6 F 103 H 16 BP BP Pulse Ox Pulse Ox Pulse Ox Pulse Ox 05/23/18 15:53 104/63 96 05/23/18 11:22 112/73 96 94 L 96 05/23/18 11:01 100/68 94 L 05/23/18 09:11 114/70 99 Weight Weight 161 lb 6.054 oz Most Recent Monitor Data Heart Rate from ECG 102 NIBP 96/54 NIBP BP-Mean 68 Respiration from ECG 28 SpO2 99 I&O: 05/22/18 05/23/18 05/24/18 06:59 06:59 06:59 Intake Total 2050 2029 Output Total 900 200 Balance 1151 1830 Result Diagrams: 05/23/18 04:56 05/23/18 04:56 Phys Exam - Physical Examination HEENT: PERRLA, moist MMs, sclera anicteric, TM's clear, oral pharynx no lesions , 2+ tonsils Neck: no nodes, no JVD, supple, full ROM Respiratory: no wheezing, no rales, no rhonchi, wheezing present, clear to auscultation bilateral sinus tachy Gastrointestinal: soft, non-tender, no distention, positive bowel sounds Musculoskeletal: no edema, pulses present, edema present Dx/Plan (1) Suicide attempt Status: Acute (2) Tricyclic overdose Code(s): T43.011A - POISONING BY TRICYCLIC ANTIDEPRESSANTS, ACCIDENTAL, INIT Status: Acute (3) Sinus tachycardia Code(s): R00.0 - TACHYCARDIA, UNSPECIFIED Status: Acute (4) Aspiration pneumonia Code(s): J69.0 - PNEUMONITIS DUE TO INHALATION OF FOOD AND VOMIT Status: Acute (5) Anemia Code(s): D64.9 - ANEMIA, UNSPECIFIED Status: Acute - Plan pt states she has always had a high heart rate -: will start her on low dose bb -: She has microcytic anemia will give her iv iron and po -: echo is normal * . Review of Systems - Review of Systems Eyes: negative: Pain, Vision Change, Conjunctivae Inflammation, Eyelid Inflammation, Redness, Other ENT: negative: Ear Pain, Ear Discharge, Nose Pain, Nose Discharge, Nose Congestion, Mouth Pain, Mouth Swelling, Throat Pain, Throat Swelling, Other Respiratory: negative: Cough, Dry, Shortness of Breath, Hemoptysis, SOB with Excertion, Pleuritic Pain, Sputum, Wheezing Cardiovascular: negative: chest pain, palpitations, orthopnea, paroxysmal nocturnal dyspnea, edema, light headedness, other Gastrointestinal: negative: Nausea, Vomiting, Abdominal Pain, Diarrhea, Constipation, Melena, Hematochezia, Other - Medications/Allergies Allergies/Adverse Reactions: Allergies Allergy/AdvReac Type Severity Reaction Status Date / Time banana Allergy Verified 05/19/18 04:44 mirtazapine [From Remeron] Allergy Verified 05/18/18 23:11 Medications: Current Medications Acetaminophen (Tylenol) 650 mg [place] Q4H PRN PRN Reason: Headache/Fever or Pain Acetaminophen (Tylenol) 650 mg PO Q4H PRN PRN Reason: Headache/Fever or Pain Last Admin: 05/20/18 12:30 Dose: 650 mg Amitriptyline HCl (Elavil) 25 mg PO HS [facility] Last Admin: 05/22/18 21:30 Dose: 25 mg Amoxicillin/Clavulanate Potassium (Augmentin) 500 mg PO Q12HR [facility] Bisacodyl (Dulcolax) 10 mg [place] Q24H PRN PRN Reason: Constipation Bupropion HCl (Wellbutrin Xl) 150 mg PO DAILY [facility] Last Admin: 05/23/18 09:12 Dose: 150 mg Docusate Sodium (Colace) 100 mg PO BID [facility] Enoxaparin Sodium (Lovenox) 40 mg SC 0900 [facility] Last Admin: 05/23/18 09:12 Dose: 40 mg Famotidine (Pepcid) 20 mg PO Q12HR [facility] Last Admin: 05/23/18 09:12 Dose: 20 mg Ferrous Sulfate (Ferrous Sulfulte) 300 mg PO DAILY [facility] Ibuprofen (Motrin) 800 mg PO Q8H PRN PRN Reason: Fever/Mild Pain Last Admin: 05/20/18 13:57 Dose: 800 mg Metoprolol Tartrate (Lopressor) 12.5 mg PO DAILY [facility] Prazosin HCl (Minipress) 2 mg PO HS [facility] Sodium Chloride (Flush - Normal Saline) 10 ml IVF Q12HR [facility] Last Admin: 05/23/18 09:13 Dose: 10 ml Sodium Chloride (Flush - Normal Saline) 10 ml IVF PRN PRN PRN Reason: Saline Flush Topiramate (Topamax) 50 mg PO BID PRN PRN Reason: Migraine Headache Tramadol HCl (Ultram) 50 mg PO Q6H PRN PRN Reason: Pain
[2018-05-23] MEDS: Amitriptyline HCl 25 MG TAB PO SCH (20:15)
[2018-05-23] MEDS: Docusate 100 MG CAP PO SCH (20:15)
[2018-05-23] MEDS: Amoxicillin/Potassium Clav 500 MG TAB PO SCH (20:15)
[2018-05-23] MEDS: Prazosin HCl 1 MG CAP PO SCH (20:17)
[2018-05-24 05:45] LABS: #Basophils 0.1 thou/uL (0.0-0.2); #Eosinphils 0.5 thou/uL (0.0-0.7); #Lymphocytes 2.2 thou/uL (1.20-3.40); #Monocytes 0.8 thou/uL (0.11-0.59); #Neutrophils 4.5 thou/uL (1.40-6.50); %Basophils 0.7 % (0.0-1.0); %Eosinophils 6.2 % (0.0-10.0); %Lymphocytes 27.3 % (28.0-48.0); %Monocytes 10.3 % (0.0-4.0); %Neutrophils 55.5 % (31.0-61.0); Hemoglobin 9.7 g/dL (12.0-16.0); Mean Corpuscular HGB CONC 31.4 g/dL (32.0-36.0); Mean Corpuscular Hemoglobin 24.9 pg (25.0-35.0); Mean Corpuscular Volume 79.4 fL (78.0-98.0); Mean Platelet Volume 8.8 fL (7.4-10.4); Platelet Count 221 thou/uL (130-400); RBC Distribution Width 16.2 % (11.5-14.5); White Blood Cell (WBC) Count 8.1 thou/uL (4.8-10.8)
[2018-05-24] MEDS ORDERED: Sodium Ferric Gluconate 125 MG in Sodium Chloride 0.9% 100 ML IVPB SCH (09:00)
[2018-05-24] MEDS ORDERED: Iron Sucrose Complex 100 MG in Sodium Chloride 0.9% 100 ML IVPB SCH (09:00)
[2018-05-24] MEDS ORDERED: Metoprolol Tartrate 25 MG TAB PO SCH (09:00)
[2018-05-24] MEDS: Amoxicillin/Potassium Clav 500 MG TAB PO SCH ×2 (09:20→21:46)
[2018-05-24] MEDS: Docusate 100 MG CAP PO SCH ×2 (09:21→21:46)
[2018-05-24] MEDS: Enoxaparin Sodium 40 MG/0.4 ML SYRINGE SC SCH (09:21)
[2018-05-24] MEDS: Famotidine 20 MG TAB PO SCH ×2 (09:21→21:47)
[2018-05-24] MEDS: Bupropion 150 MG XL TAB PO SCH (09:21)
--- NOTE | 2018-05-24 11:48 | PRG ---
DATE OF SERVICE: 05/24/2018 OBJECTIVE: VITAL SIGNS: This morning, blood pressure is 96/41, sats are 98% on room air, temperature 97, respir ation 16, pulse 84. CHEST: Reveal decreased breath sounds, no wheezing. CARDIAC: Normal S1, S2. No gallops. ABDOMEN: Soft, no masses. IMPRESSION: Status post overdose, bilateral pneumonia, atelectasis. PLAN: From a pulmonary standpoint of view, the patient is pretty much ready to be discharged home. She needs [facility] counseling. I see no reason to start her on a beta floyd. Pulmonary and Critical care will follow at a distance.
--- NOTE | 2018-05-24 14:33 | PDOC.PN ---
- Subjective Encounter Start Date: 05/24/18 Encounter Start Time: 11:45 Subjective: pt up in bed no complains - Objective Resuscitation Status: Resuscitation Status FULL:Full Resuscitation Vital Signs & Weight: Vital Signs (12 hours) Temp Pulse Pulse Pulse Resp BP BP 05/24/18 13:54 103 H 102 H 107/64 100/55 L 05/24/18 12:00 98.2 F 113 H 16 05/24/18 08:14 97.8 F 84 16 05/24/18 04:00 97.9 F 76 12 05/24/18 03:38 BP BP Pulse Ox Pulse Ox Pulse Ox 05/24/18 13:54 96 96 05/24/18 12:00 103/59 L 99 05/24/18 08:14 96/54 L 95 05/24/18 04:00 89/53 L 98 05/24/18 03:38 95 Weight Weight 159 lb Most Recent Monitor Data Heart Rate from ECG 102 NIBP 96/54 NIBP BP-Mean 68 Respiration from ECG 28 SpO2 99 I&O: 05/23/18 05/24/18 05/25/18 06:59 06:59 06:59 Intake Total 2030 1220 Output Total 200 Balance 1830 1220 Result Diagrams: 05/24/18 04:59 05/23/18 04:56 Phys Exam - Physical Examination HEENT: PERRLA, moist MMs, sclera anicteric, TM's clear, oral pharynx no lesions , 2+ tonsils Neck: no nodes, no JVD, supple, full ROM Respiratory: no wheezing, no rales, no rhonchi, wheezing present, clear to auscultation bilateral Cardiovascular: RRR, no significant murmur, no rub, gallop, irregular Gastrointestinal: soft, non-tender, no distention, positive bowel sounds Dx/Plan (1) Suicide attempt Status: Acute (2) Tricyclic overdose Code(s): T43.011A - POISONING BY TRICYCLIC ANTIDEPRESSANTS, ACCIDENTAL, INIT Status: Acute (3) Sinus tachycardia Code(s): R00.0 - TACHYCARDIA, UNSPECIFIED Status: Acute (4) Aspiration pneumonia Code(s): J69.0 - PNEUMONITIS DUE TO INHALATION OF FOOD AND VOMIT Status: Acute (5) Anemia Code(s): D64.9 - ANEMIA, UNSPECIFIED Status: Acute - Plan pt's heart rate goes up to 130's when she ambulates -: She became hypotensive on bb will discontinue -: will need outpatient workup -: continue abx -: mental health called today. pt medically clear to be discharged. * . Review of Systems - Review of Systems Eyes: negative: Pain, Vision Change, Conjunctivae Inflammation, Eyelid Inflammation, Redness, Other ENT: negative: Ear Pain, Ear Discharge, Nose Pain, Nose Discharge, Nose Congestion, Mouth Pain, Mouth Swelling, Throat Pain, Throat Swelling, Other Respiratory: negative: Cough, Dry, Shortness of Breath, Hemoptysis, SOB with Excertion, Pleuritic Pain, Sputum, Wheezing Cardiovascular: negative: chest pain, palpitations, orthopnea, paroxysmal nocturnal dyspnea, edema, light headedness, other Gastrointestinal: negative: Nausea, Vomiting, Abdominal Pain, Diarrhea, Constipation, Melena, Hematochezia, Other Genitourinary: negative: Dysuria, Frequency, Incontinence, Hematuria, Retention , Other - Medications/Allergies Allergies/Adverse Reactions: Allergies Allergy/AdvReac Type Severity Reaction Status Date / Time banana Allergy Verified 05/19/18 04:44 mirtazapine [From Remeron] Allergy Verified 05/18/18 23:11 Medications: Current Medications Acetaminophen (Tylenol) 650 mg [place] Q4H PRN PRN Reason: Headache/Fever or Pain Acetaminophen (Tylenol) 650 mg PO Q4H PRN PRN Reason: Headache/Fever or Pain Last Admin: 05/20/18 12:30 Dose: 650 mg Amitriptyline HCl (Elavil) 25 mg PO HS [facility] Last Admin: 05/23/18 20:15 Dose: 25 mg Amoxicillin/Clavulanate Potassium (Augmentin) 500 mg PO Q12HR [facility] Last Admin: 05/24/18 09:20 Dose: 500 mg Bisacodyl (Dulcolax) 10 mg [place] Q24H PRN PRN Reason: Constipation Bupropion HCl (Wellbutrin Xl) 150 mg PO DAILY [facility] Last Admin: 05/24/18 09:21 Dose: 150 mg Docusate Sodium (Colace) 100 mg PO BID [facility] Last Admin: 05/24/18 09:21 Dose: 100 mg Enoxaparin Sodium (Lovenox) 40 mg SC 0900 [facility] Last Admin: 05/24/18 09:21 Dose: 40 mg Famotidine (Pepcid) 20 mg PO Q12HR [facility] Last Admin: 05/24/18 09:21 Dose: 20 mg Ferrous Sulfate (Ferrous Sulfulte) 300 mg PO DAILY [facility] Last Admin: 05/24/18 09:22 Dose: 300 mg Ibuprofen (Motrin) 800 mg PO Q8H PRN PRN Reason: Fever/Mild Pain Last Admin: 05/20/18 13:57 Dose: 800 mg Prazosin HCl (Minipress) 2 mg PO HS [facility] Last Admin: 05/23/18 20:17 Dose: 2 mg Sodium Chloride (Flush - Normal Saline) 10 ml IVF Q12HR [facility] Last Admin: 05/24/18 09:23 Dose: 10 ml Sodium Chloride (Flush - Normal Saline) 10 ml IVF PRN PRN PRN Reason: Saline Flush Topiramate (Topamax) 50 mg PO BID PRN PRN Reason: Migraine Headache Tramadol HCl (Ultram) 50 mg PO Q6H PRN PRN Reason: Pain
[2018-05-24] MEDS: Amitriptyline HCl 25 MG TAB PO SCH (21:46)
[2018-05-24] MEDS: Prazosin HCl 1 MG CAP PO SCH (21:47)
[2018-05-25 08:15] VITALS: BMI 22.8
[2018-05-25] MEDS: Bupropion 150 MG XL TAB PO SCH (08:44)
[2018-05-25] MEDS: Amoxicillin/Potassium Clav 500 MG TAB PO SCH ×2 (08:44→21:03)
[2018-05-25] MEDS: Docusate 100 MG CAP PO SCH ×2 (08:45→20:50)
[2018-05-25] MEDS: Enoxaparin Sodium 40 MG/0.4 ML SYRINGE SC SCH (08:45)
[2018-05-25] MEDS: Famotidine 20 MG TAB PO SCH ×2 (08:45→20:50)
--- NOTE | 2018-05-25 14:01 | PDOC.PN ---
- Subjective Encounter Start Date: 05/25/18 Encounter Start Time: 13:00 Subjective: pt up in bed no complains - Objective Resuscitation Status: Resuscitation Status FULL:Full Resuscitation Vital Signs & Weight: Vital Signs (12 hours) Temp Pulse Resp BP BP Pulse Ox 05/25/18 12:00 97.6 F 107 H 16 108/64 97 05/25/18 08:11 98.1 F 83 16 90/52 L 93 L 05/25/18 08:00 98.1 F 83 16 93 L 05/25/18 04:00 97.7 F 92 16 92/51 L 98 Weight Weight 159 lb 8 oz Most Recent Monitor Data Heart Rate from ECG 102 NIBP 96/54 NIBP BP-Mean 68 Respiration from ECG 28 SpO2 99 I&O: 05/24/18 05/25/18 05/26/18 06:59 06:59 06:59 Intake Total 1220 800 Balance 1220 800 Result Diagrams: 05/24/18 04:59 05/23/18 04:56 Phys Exam - Physical Examination HEENT: PERRLA, moist MMs, sclera anicteric, TM's clear, oral pharynx no lesions , 2+ tonsils Neck: no nodes, no JVD, supple, full ROM Respiratory: no wheezing, no rales, no rhonchi, wheezing present, clear to auscultation bilateral Cardiovascular: RRR, no significant murmur, no rub, gallop, irregular Gastrointestinal: soft, non-tender, no distention, positive bowel sounds Dx/Plan (1) Suicide attempt Status: Acute (2) Tricyclic overdose Code(s): T43.011A - POISONING BY TRICYCLIC ANTIDEPRESSANTS, ACCIDENTAL, INIT Status: Acute (3) Sinus tachycardia Code(s): R00.0 - TACHYCARDIA, UNSPECIFIED Status: Acute (4) Aspiration pneumonia Code(s): J69.0 - PNEUMONITIS DUE TO INHALATION OF FOOD AND VOMIT Status: Acute (5) Anemia Code(s): D64.9 - ANEMIA, UNSPECIFIED Status: Acute - Plan spoke with Dr summers who stated he was not made aware of her coming and -: stated to call me back. -: will decrease dose of prazosin due to low bp * . Review of Systems - Review of Systems ENT: negative: Ear Pain, Ear Discharge, Nose Pain, Nose Discharge, Nose Congestion, Mouth Pain, Mouth Swelling, Throat Pain, Throat Swelling, Other Respiratory: negative: Cough, Dry, Shortness of Breath, Hemoptysis, SOB with Excertion, Pleuritic Pain, Sputum, Wheezing Cardiovascular: negative: chest pain, palpitations, orthopnea, paroxysmal nocturnal dyspnea, edema, light headedness, other Gastrointestinal: negative: Nausea, Vomiting, Abdominal Pain, Diarrhea, Constipation, Melena, Hematochezia, Other - Medications/Allergies Allergies/Adverse Reactions: Allergies Allergy/AdvReac Type Severity Reaction Status Date / Time banana Allergy Verified 05/19/18 04:44 mirtazapine [From Remeron] Allergy Verified 05/18/18 23:11 Medications: Current Medications Acetaminophen (Tylenol) 650 mg [place] Q4H PRN PRN Reason: Headache/Fever or Pain Acetaminophen (Tylenol) 650 mg PO Q4H PRN PRN Reason: Headache/Fever or Pain Last Admin: 05/20/18 12:30 Dose: 650 mg Amitriptyline HCl (Elavil) 25 mg PO [facility] Last Admin: 05/24/18 21:46 Dose: 25 mg Amoxicillin/Clavulanate Potassium (Augmentin) 500 mg PO Q12HR [facility] Last Admin: 05/25/18 08:44 Dose: 500 mg Bisacodyl (Dulcolax) 10 mg [place] Q24H PRN PRN Reason: Constipation Bupropion HCl (Wellbutrin Xl) 150 mg PO DAILY [facility] Last Admin: 05/25/18 08:44 Dose: 150 mg Docusate Sodium (Colace) 100 mg PO BID [facility] Last Admin: 05/25/18 08:45 Dose: 100 mg Enoxaparin Sodium (Lovenox) 40 mg SC 0900 [facility] Last Admin: 05/25/18 08:45 Dose: 40 mg Famotidine (Pepcid) 20 mg PO Q12HR [facility] Last Admin: 05/25/18 08:45 Dose: 20 mg Ferrous Sulfate (Ferrous Sulfulte) 300 mg PO DAILY [facility] Last Admin: 05/25/18 08:45 Dose: 300 mg Ibuprofen (Motrin) 800 mg PO Q8H PRN PRN Reason: Fever/Mild Pain Last Admin: 05/20/18 13:57 Dose: 800 mg Prazosin HCl (Minipress) 2 mg PO [facility] Last Admin: 05/24/18 21:47 Dose: 2 mg Sodium Chloride (Flush - Normal Saline) 10 ml IVF Q12HR [facility] Last Admin: 05/25/18 08:46 Dose: 10 ml Sodium Chloride (Flush - Normal Saline) 10 ml IVF PRN PRN PRN Reason: Saline Flush Topiramate (Topamax) 50 mg PO BID PRN PRN Reason: Migraine Headache Tramadol HCl (Ultram) 50 mg PO Q6H PRN PRN Reason: Pain
--- NOTE | 2018-05-25 15:11 | EKG ---
Test Reason : Blood Pressure : / mmHG Vent. Rate : 103 BPM Atrial Rate : 103 BPM P-R Int : 184 ms QRS Dur : 100 ms QT Int : 358 ms P-R-T Axes : 059 044 058 degrees QTc Int : 468 ms Sinus tachycardia Possible Left atrial enlargement Incomplete right bundle branch block Borderline ECG #2 Confirmed by URIEL SANCHEZ D.O. ([id number]), metropolitan editor GINA RAMIRES ([id number] on 05/25/2018 3:11:30 PM Referred By: Confirmed By:URIEL SANCHEZ D.O.
[2018-05-25] MEDS: Prazosin HCl 1 MG CAP PO SCH (20:50)
[2018-05-25] MEDS: Amitriptyline HCl 25 MG TAB PO SCH (20:50)
[2018-05-26] MEDS: Enoxaparin Sodium 40 MG/0.4 ML SYRINGE SC SCH (08:25)
[2018-05-26] MEDS: Famotidine 20 MG TAB PO SCH ×2 (08:25→20:18)
[2018-05-26] MEDS: Docusate 100 MG CAP PO SCH ×2 (08:25→20:18)
[2018-05-26] MEDS: Amoxicillin/Potassium Clav 500 MG TAB PO SCH ×2 (08:25→20:18)
[2018-05-26] MEDS: Bupropion 150 MG XL TAB PO SCH (11:36)
--- NOTE | 2018-05-26 14:48 | PDOC.PN ---
- Subjective Encounter Start Date: 05/26/18 Encounter Start Time: 11:00 Subjective: pt up in bed no complains - Objective Resuscitation Status: Resuscitation Status FULL:Full Resuscitation Vital Signs & Weight: Vital Signs (12 hours) Temp Pulse Resp BP Pulse Ox 05/26/18 12:00 96.8 F L 95 16 90/64 96 05/26/18 08:00 97.6 F 85 18 98/67 98 05/26/18 03:56 98.0 F 92 16 100/67 97 Weight Weight 159 lb 8 oz Most Recent Monitor Data Heart Rate from ECG 102 NIBP 96/54 NIBP BP-Mean 68 Respiration from ECG 28 SpO2 99 I&O: 05/25/18 05/26/18 05/27/18 06:59 06:59 06:59 Intake Total 800 1465 480 Balance 800 1465 480 Result Diagrams: 05/24/18 04:59 05/23/18 04:56 Phys Exam - Physical Examination HEENT: PERRLA, moist MMs, sclera anicteric, TM's clear, oral pharynx no lesions , 2+ tonsils Neck: no nodes, no JVD, supple, full ROM Respiratory: no wheezing, no rales, no rhonchi, wheezing present, clear to auscultation bilateral Cardiovascular: RRR, no significant murmur, no rub, gallop, irregular Gastrointestinal: soft, non-tender, no distention, positive bowel sounds Dx/Plan (1) Suicide attempt Status: Acute (2) Tricyclic overdose Code(s): T43.011A - POISONING BY TRICYCLIC ANTIDEPRESSANTS, ACCIDENTAL, INIT Status: Acute (3) Sinus tachycardia Code(s): R00.0 - TACHYCARDIA, UNSPECIFIED Status: Acute (4) Aspiration pneumonia Code(s): J69.0 - PNEUMONITIS DUE TO INHALATION OF FOOD AND VOMIT Status: Acute (5) Anemia Code(s): D64.9 - ANEMIA, UNSPECIFIED Status: Acute - Plan Had some issue due to insurance for placement -: continue to monitor. * . Review of Systems - Review of Systems ENT: negative: Ear Pain, Ear Discharge, Nose Pain, Nose Discharge, Nose Congestion, Mouth Pain, Mouth Swelling, Throat Pain, Throat Swelling, Other Respiratory: negative: Cough, Dry, Shortness of Breath, Hemoptysis, SOB with Excertion, Pleuritic Pain, Sputum, Wheezing Cardiovascular: negative: chest pain, palpitations, orthopnea, paroxysmal nocturnal dyspnea, edema, light headedness, other Gastrointestinal: negative: Nausea, Vomiting, Abdominal Pain, Diarrhea, Constipation, Melena, Hematochezia, Other - Medications/Allergies Allergies/Adverse Reactions: Allergies Allergy/AdvReac Type Severity Reaction Status Date / Time banana Allergy Verified 05/19/18 04:44 mirtazapine [From Remeron] Allergy Verified 05/18/18 23:11 Medications: Current Medications Acetaminophen (Tylenol) 650 mg [place] Q4H PRN PRN Reason: Headache/Fever or Pain Acetaminophen (Tylenol) 650 mg PO Q4H PRN PRN Reason: Headache/Fever or Pain Last Admin: 05/20/18 12:30 Dose: 650 mg Amitriptyline HCl (Elavil) 25 mg PO [facility] Last Admin: 05/25/18 20:50 Dose: 25 mg Amoxicillin/Clavulanate Potassium (Augmentin) 500 mg PO Q12HR [facility] Last Admin: 05/26/18 08:25 Dose: 500 mg Bisacodyl (Dulcolax) 10 mg [place] Q24H PRN PRN Reason: Constipation Bupropion HCl (Wellbutrin Xl) 150 mg PO DAILY [facility] Last Admin: 05/26/18 11:36 Dose: 150 mg Docusate Sodium (Colace) 100 mg PO BID [facility] Last Admin: 05/26/18 08:25 Dose: 100 mg Enoxaparin Sodium (Lovenox) 40 mg SC 0900 [facility] Last Admin: 05/26/18 08:25 Dose: 40 mg Famotidine (Pepcid) 20 mg PO Q12HR [facility] Last Admin: 05/26/18 08:25 Dose: 20 mg Ferrous Sulfate (Ferrous Sulfulte) 300 mg PO DAILY [facility] Last Admin: 05/26/18 11:37 Dose: 300 mg Ibuprofen (Motrin) 800 mg PO Q8H PRN PRN Reason: Fever/Mild Pain Last Admin: 05/20/18 13:57 Dose: 800 mg Prazosin HCl (Minipress) 1 mg PO [facility] Last Admin: 05/25/18 20:50 Dose: 1 mg Sodium Chloride (Flush - Normal Saline) 10 ml IVF Q12HR [facility] Last Admin: 05/26/18 08:26 Dose: 10 ml Sodium Chloride (Flush - Normal Saline) 10 ml IVF PRN PRN PRN Reason: Saline Flush Topiramate (Topamax) 50 mg PO BID PRN PRN Reason: Migraine Headache Tramadol HCl (Ultram) 50 mg PO Q6H PRN PRN Reason: Pain
[2018-05-26] MEDS: Prazosin HCl 1 MG CAP PO SCH (20:19)
[2018-05-26] MEDS: Amitriptyline HCl 25 MG TAB PO SCH (21:13)
[2018-05-27] MEDS: Amoxicillin/Potassium Clav 500 MG TAB PO SCH ×2 (08:31→21:05)
[2018-05-27] MEDS: Famotidine 20 MG TAB PO SCH ×2 (08:31→21:05)
[2018-05-27] MEDS: Enoxaparin Sodium 40 MG/0.4 ML SYRINGE SC SCH (08:31)
[2018-05-27] MEDS: Docusate 100 MG CAP PO SCH ×2 (08:31→21:05)
[2018-05-27] MEDS: Bupropion 150 MG XL TAB PO SCH (08:31)
--- NOTE | 2018-05-27 09:30 | PRG ---
DATE OF SERVICE: 05/27/2018 This morning she is better. She is ready to be discharged to [facility]. PHYSICAL EXAMINATION: VITAL SIGNS: Sats I am surprised are still 92 on room air, pulse 105, temperature 98, blood pressure 99/66. CHEST: Chest reveals decreased breath sounds without wheezing. CARDIAC: Normal S1, S2. ABDOMEN: Soft, no masses. IMPRESSION: 1. Respiratory failure. 2. Overdose. 3. Bipolar disorder. PLAN: She is stable enough to be transferred to [facility] inpatient psych unit.
--- NOTE | 2018-05-27 18:01 | EKG ---
Test Reason : TIMED Blood Pressure : / mmHG Vent. Rate : 082 BPM Atrial Rate : 082 BPM P-R Int : 210 ms QRS Dur : 098 ms QT Int : 434 ms P-R-T Axes : 033 039 031 degrees QTc Int : 507 ms Sinus rhythm with 1st degree A-V block Prolonged QT Abnormal ECG When compared with ECG of 31-JUL-2015 19:27, NH interval has increased T wave inversion no longer evident in Anterior leads QT has lengthened Confirmed by DR. Temo CAMPBELL ([id number]) on 05/27/2018 6:00:41 PM Referred By: LEMUEL Confirmed By:DR. Temo CAMPBELL
--- NOTE | 2018-05-27 18:05 | EKG ---
Test Reason : Blood Pressure : / mmHG Vent. Rate : 098 BPM Atrial Rate : 098 BPM P-R Int : 192 ms QRS Dur : 098 ms QT Int : 378 ms P-R-T Axes : 050 024 016 degrees QTc Int : 482 ms Normal sinus rhythm Nonspecific ST abnormality Prolonged QT Abnormal ECG When compared with ECG of 19-MAY-2018 04:29, (Unconfirmed) No significant change was found Confirmed by DR. Temo CAMPBELL ([id number]) on 05/27/2018 6:04:25 PM Referred By: LEMUEL Confirmed By:DR. Temo CAMPBELL
--- NOTE | 2018-05-27 18:05 | EKG ---
Test Reason : Blood Pressure : / mmHG Vent. Rate : 098 BPM Atrial Rate : 098 BPM P-R Int : 182 ms QRS Dur : 100 ms QT Int : 380 ms P-R-T Axes : 046 038 040 degrees QTc Int : 485 ms Normal sinus rhythm Prolonged QT Abnormal ECG When compared with ECG of 19-MAY-2018 09:33, (Unconfirmed) No significant change was found Confirmed by DR. Temo CAMPBELL ([id number]) on 05/27/2018 6:04:55 PM Referred By: LEMUEL Confirmed By:DR. Temo CAMPBELL
[2018-05-27] MEDS: Prazosin HCl 1 MG CAP PO SCH (21:05)
[2018-05-27] MEDS: Amitriptyline HCl 25 MG TAB PO SCH (21:05)
--- NOTE | 2018-05-27 21:36 | PDOC.PN ---
- Subjective Encounter Start Date: 05/27/18 Encounter Start Time: 10:30 Subjective: pt up in bed no complains - Objective Resuscitation Status: Resuscitation Status FULL:Full Resuscitation Vital Signs & Weight: Vital Signs (12 hours) Temp Pulse Resp BP Pulse Ox 05/27/18 16:00 98.7 F 100 16 94/66 97 05/27/18 11:38 98.6 F 106 H 16 101/70 95 Weight Weight 159 lb 8 oz Most Recent Monitor Data Heart Rate from ECG 102 NIBP 96/54 NIBP BP-Mean 68 Respiration from ECG 28 SpO2 99 I&O: 05/26/18 05/27/18 05/28/18 06:59 06:59 06:59 Intake Total 1465 1845 720 Balance 1465 1845 720 Result Diagrams: 05/24/18 04:59 05/23/18 04:56 Phys Exam - Physical Examination HEENT: PERRLA, moist MMs, sclera anicteric, TM's clear, oral pharynx no lesions , 2+ tonsils Neck: no nodes, no JVD, supple, full ROM Respiratory: no wheezing, no rales, no rhonchi, wheezing present, clear to auscultation bilateral Cardiovascular: RRR, no significant murmur, no rub, gallop, irregular Dx/Plan (1) Suicide attempt Status: Acute (2) Tricyclic overdose Code(s): T43.011A - POISONING BY TRICYCLIC ANTIDEPRESSANTS, ACCIDENTAL, INIT Status: Acute (3) Sinus tachycardia Code(s): R00.0 - TACHYCARDIA, UNSPECIFIED Status: Acute (4) Aspiration pneumonia Code(s): J69.0 - PNEUMONITIS DUE TO INHALATION OF FOOD AND VOMIT Status: Acute (5) Anemia Code(s): D64.9 - ANEMIA, UNSPECIFIED Status: Acute - Plan waiting on bed for tranfer -: pt has no complains * . Review of Systems - Review of Systems ENT: negative: Ear Pain, Ear Discharge, Nose Pain, Nose Discharge, Nose Congestion, Mouth Pain, Mouth Swelling, Throat Pain, Throat Swelling, Other Respiratory: negative: Cough, Dry, Shortness of Breath, Hemoptysis, SOB with Excertion, Pleuritic Pain, Sputum, Wheezing Cardiovascular: negative: chest pain, palpitations, orthopnea, paroxysmal nocturnal dyspnea, edema, light headedness, other Gastrointestinal: negative: Nausea, Vomiting, Abdominal Pain, Diarrhea, Constipation, Melena, Hematochezia, Other - Medications/Allergies Allergies/Adverse Reactions: Allergies Allergy/AdvReac Type Severity Reaction Status Date / Time banana Allergy Verified 05/19/18 04:44 mirtazapine [From Remeron] Allergy Verified 05/18/18 23:11 Medications: Current Medications Acetaminophen (Tylenol) 650 mg DE Q4H PRN PRN Reason: Headache/Fever or Pain Acetaminophen (Tylenol) 650 mg PO Q4H PRN PRN Reason: Headache/Fever or Pain Last Admin: 05/20/18 12:30 Dose: 650 mg Amitriptyline HCl (Elavil) 25 mg PO HS [facility] Last Admin: 05/27/18 21:05 Dose: 25 mg Amoxicillin/Clavulanate Potassium (Augmentin) 500 mg PO Q12HR [facility] Last Admin: 05/27/18 21:05 Dose: 500 mg Bisacodyl (Dulcolax) 10 mg DE Q24H PRN PRN Reason: Constipation Bupropion HCl (Wellbutrin Xl) 150 mg PO DAILY [facility] Last Admin: 05/27/18 08:31 Dose: 150 mg Docusate Sodium (Colace) 100 mg PO BID [facility] Last Admin: 05/27/18 21:05 Dose: 100 mg Enoxaparin Sodium (Lovenox) 40 mg SC 0900 [facility] Last Admin: 05/27/18 08:31 Dose: 40 mg Famotidine (Pepcid) 20 mg PO Q12HR [facility] Last Admin: 05/27/18 21:05 Dose: 20 mg Ferrous Sulfate (Ferrous Sulfulte) 300 mg PO DAILY [facility] Last Admin: 05/27/18 08:31 Dose: 300 mg Ibuprofen (Motrin) 800 mg PO Q8H PRN PRN Reason: Fever/Mild Pain Last Admin: 05/20/18 13:57 Dose: 800 mg Prazosin HCl (Minipress) 1 mg PO HS [facility] Last Admin: 05/27/18 21:05 Dose: 1 mg Sodium Chloride (Flush - Normal Saline) 10 ml IVF Q12HR [facility] Last Admin: 05/27/18 21:06 Dose: 10 ml Sodium Chloride (Flush - Normal Saline) 10 ml IVF PRN PRN PRN Reason: Saline Flush Topiramate (Topamax) 50 mg PO BID PRN PRN Reason: Migraine Headache Tramadol HCl (Ultram) 50 mg PO Q6H PRN PRN Reason: Pain
[2018-05-28] MEDS: Amoxicillin/Potassium Clav 500 MG TAB PO SCH (10:27)
[2018-05-28] MEDS: Famotidine 20 MG TAB PO SCH (10:27)
[2018-05-28] MEDS: Docusate 100 MG CAP PO SCH (10:27)
[2018-05-28] MEDS: Bupropion 150 MG XL TAB PO SCH (10:27)
[2018-05-28] MEDS: Enoxaparin Sodium 40 MG/0.4 ML SYRINGE SC SCH (10:28)
--- NOTE | 2018-05-28 14:55 | PDOC.PN ---
- Subjective Encounter Start Date: 05/28/18 Encounter Start Time: 10:00 Subjective: pt up in bed no complains - Objective Resuscitation Status: Resuscitation Status FULL:Full Resuscitation Vital Signs & Weight: Vital Signs (12 hours) Temp Pulse Resp BP Pulse Ox 05/28/18 11:15 97.4 F L 90 16 96/63 96 05/28/18 08:00 97.6 F 84 16 98 05/28/18 07:46 97.6 F 84 16 96/66 98 Weight Weight 159 lb 8 oz Most Recent Monitor Data Heart Rate from ECG 102 NIBP 96/54 NIBP BP-Mean 68 Respiration from ECG 28 SpO2 99 I&O: 05/27/18 05/28/18 05/29/18 06:59 06:59 06:59 Intake Total 1845 1325 Balance 1845 1325 Result Diagrams: 05/24/18 04:59 05/23/18 04:56 Phys Exam - Physical Examination HEENT: PERRLA, moist MMs, sclera anicteric, TM's clear, oral pharynx no lesions , 2+ tonsils Neck: no nodes, no JVD, supple, full ROM Respiratory: no wheezing, no rales, no rhonchi, wheezing present, clear to auscultation bilateral Cardiovascular: RRR, no significant murmur, no rub, gallop, irregular Gastrointestinal: soft, non-tender, no distention, positive bowel sounds Dx/Plan (1) Suicide attempt Status: Acute (2) Tricyclic overdose Code(s): T43.011A - POISONING BY TRICYCLIC ANTIDEPRESSANTS, ACCIDENTAL, INIT Status: Acute (3) Sinus tachycardia Code(s): R00.0 - TACHYCARDIA, UNSPECIFIED Status: Acute (4) Aspiration pneumonia Code(s): J69.0 - PNEUMONITIS DUE TO INHALATION OF FOOD AND VOMIT Status: Acute (5) Anemia Code(s): D64.9 - ANEMIA, UNSPECIFIED Status: Acute - Plan awaiting to be placed * . Review of Systems - Review of Systems ENT: negative: Ear Pain, Ear Discharge, Nose Pain, Nose Discharge, Nose Congestion, Mouth Pain, Mouth Swelling, Throat Pain, Throat Swelling, Other Respiratory: negative: Cough, Dry, Shortness of Breath, Hemoptysis, SOB with Excertion, Pleuritic Pain, Sputum, Wheezing Cardiovascular: negative: chest pain, palpitations, orthopnea, paroxysmal nocturnal dyspnea, edema, light headedness, other Gastrointestinal: negative: Nausea, Vomiting, Abdominal Pain, Diarrhea, Constipation, Melena, Hematochezia, Other - Medications/Allergies Allergies/Adverse Reactions: Allergies Allergy/AdvReac Type Severity Reaction Status Date / Time banana Allergy Verified 05/19/18 04:44 mirtazapine [From Remeron] Allergy Verified 05/18/18 23:11 Medications: Current Medications Acetaminophen (Tylenol) 650 mg HI Q4H PRN PRN Reason: Headache/Fever or Pain Acetaminophen (Tylenol) 650 mg PO Q4H PRN PRN Reason: Headache/Fever or Pain Last Admin: 05/20/18 12:30 Dose: 650 mg Amitriptyline HCl (Elavil) 25 mg PO HS [facility] Last Admin: 05/27/18 21:05 Dose: 25 mg Amoxicillin/Clavulanate Potassium (Augmentin) 500 mg PO Q12HR [facility] Last Admin: 05/28/18 10:27 Dose: 500 mg Bisacodyl (Dulcolax) 10 mg HI Q24H PRN PRN Reason: Constipation Bupropion HCl (Wellbutrin Xl) 150 mg PO DAILY [facility] Last Admin: 05/28/18 10:27 Dose: 150 mg Docusate Sodium (Colace) 100 mg PO BID [facility] Last Admin: 05/28/18 10:27 Dose: 100 mg Enoxaparin Sodium (Lovenox) 40 mg SC 0900 [facility] Last Admin: 05/28/18 10:28 Dose: 40 mg Famotidine (Pepcid) 20 mg PO Q12HR [facility] Last Admin: 05/28/18 10:27 Dose: 20 mg Ferrous Sulfate (Ferrous Sulfulte) 300 mg PO DAILY [facility] Last Admin: 05/28/18 10:28 Dose: 300 mg Ibuprofen (Motrin) 800 mg PO Q8H PRN PRN Reason: Fever/Mild Pain Last Admin: 05/20/18 13:57 Dose: 800 mg Prazosin HCl (Minipress) 1 mg PO HS [facility] Last Admin: 05/27/18 21:05 Dose: 1 mg Sodium Chloride (Flush - Normal Saline) 10 ml IVF Q12HR [facility] Last Admin: 05/28/18 10:28 Dose: Not Given Sodium Chloride (Flush - Normal Saline) 10 ml IVF PRN PRN PRN Reason: Saline Flush Topiramate (Topamax) 50 mg PO BID PRN PRN Reason: Migraine Headache Tramadol HCl (Ultram) 50 mg PO Q6H PRN PRN Reason: Pain
[2018-05-28 16:53] VITALS: BP 103/70; TEMP 97.9
== END 2018-05-28 18:40 | DRG 917 ==
LOC: ERS 23:03 → CCU 05-19 01:26 → 2NO 05-22 14:27 → T4-B 05-25 19:37
PROVIDERS: ADMIT Internal Medicine; ATTEND Internal Medicine
PROC: 5A1935Z Respiratory Ventilation, Less than 24 Consecutive Hours (ICD-10-PCS; principal; 2018-05-19)
DX: T43.012A Poisoning by tricyclic antidepressants, intentional self-harm, initial encounter (principal); J96.00 Acute respiratory failure, unspecified whether with hypoxia or hypercapnia; J69.0 Pneumonitis due to inhalation of food and vomit; J98.11 Atelectasis; F31.9 Bipolar disorder, unspecified; Z91.5 Personal history of self-harm; G89.29 Other chronic pain; D64.9 Anemia, unspecified
CPT/HCPCS: 36415; 51702; 71045; 71046; 80048; 80053; 80306; 80307; 81003; 81025; 82330; 82435; 82803; 82805; 83540; 83880; 84132; 84295; 85014; 85025; 87040; 93005; 93010; 93306; 94002; 94003; 94640; 94660; 94760; 96365; 96366; 96375; 96376; A4216; G8978-GP-CK; G8979-GP-CJ; J1644; J1650; J2060; J2250; J2543; J2704; J2916; J3480; J7050; J7070; J7620; S0028

== ENCOUNTER 2018-09-19 18:28 | Inpatient (IN) | payer OTHER, SELFPAY ==
[2018-09-19] MEDS ORDERED: Lorazepam 2 MG/ML VIAL ONE ×2 (19:10)
[2018-09-19 19:27] LABS: #Eosinphils 0.1 thou/uL (0.0-0.7); #Lymphocytes 2.5 thou/uL (1.20-3.40); #Monocytes 0.7 thou/uL (0.11-0.59); #Neutrophils 3.1 thou/uL (1.40-6.50); %Basophils 0.7 % (0.0-1.0); %Eosinophils 2.3 % (0.0-10.0); %Lymphocytes 38.1 % (28.0-48.0); %Monocytes 11.2 % (0.0-4.0); %Neutrophils 47.7 % (31.0-61.0); Hemoglobin 12.9 g/dL (12.0-16.0); Mean Corpuscular HGB CONC 32.9 g/dL (32.0-36.0); Mean Corpuscular Volume 82.1 fL (78.0-98.0); Mean Platelet Volume 10.9 fL (7.4-10.4); Platelet Count 185 thou/uL (130-400); RBC Distribution Width 13.7 % (11.5-14.5); Red Blood Cell (RBC) Count 4.79 mill/uL (4.00-5.20); White Blood Cell (WBC) Count 6.5 thou/uL (4.8-10.8)
[2018-09-19] MEDS ORDERED: Magnesium 2 GM/50 ML BAG (IN WATER) ONE (19:57)
[2018-09-19 20:03] LABS: Acetaminophen Less than 6.0 mcg/mL (10.0-30.0); Alcohol 11 mg/dL (Less than 10); Salicylate Less than 8.0 mg/dL (15.0-30.0)
[2018-09-19 20:06] LABS: Bilirubin Negative (Negative); Blood, Urine Moderate (Negative); Clarity CLEAR (Clear); Glucose, Urine (Dipstick) Negative (Negative); Leukocyte Negative (Negative); Nitrite Negative (Negative); Protein, Urine (Dipstick) Negative (Neg-Trace); Specific Gravity, Urine 1.011 (1.002-1.036); Urobilinogen 0.2 mg/dL (0.2-1.0)
[2018-09-19 20:09] LABS: Bacteria/HPF None Seen HPF (None Seen); Hyaline Casts/LPF 0-3 HYALINE CAST LPF (0-3 Hyaline); Pathc Cast-AUWi Flag 1.01 (0-2.49); Squamous Epithelial 0-3 HPF (0-3); WBC/HPF 0-3 HPF (0-3)
[2018-09-19 20:10] LABS: Albumin 3.9 g/dL (3.5-5.0)
[2018-09-19 20:11] LABS: Chloride 107 mmol/L (98-107); Potassium 3.2 mmol/L (3.5-5.1); Sodium 138 mmol/L (136-145)
[2018-09-19 20:12] LABS: Calcium 8.5 mg/dL (7.8-10.44); Globulin 3.1 g/dL (2.4-3.5); Glucose 131 mg/dL (70-105)
[2018-09-19 20:14] LABS: Anion Gap 14 mmol/L (10-20); Bilirubin, Total 0.2 mg/dL (0.2-1.2); Carbon Dioxide 20 mmol/L (22-29)
[2018-09-19 20:15] LABS: Alkaline Phosphatase 102 U/L (40-150)
[2018-09-19 20:16] LABS: Amphetamine Not Detected (NotDetected); Barbiturates Screen Not Detected (NotDetected); Benzodiazepine Screen Not Detected (NotDetected); Cocaine Metabolite Screen Not Detected (NotDetected); Medtox Control Line Valid? VALID (VALID); Medtox Reader # READER 4; Methadone Not Detected (NotDetected); Methamphetamine Not Detected (NotDetected); Opiate Screen Not Detected (NotDetected); Oxycodone Screen Not Detected (NotDetected); Phencyclidine (PCP) Not Detected (NotDetected); THC/Cannabinoid Screen Not Detected (NotDetected); Tricyclic Screen Not Detected (NotDetected)
[2018-09-19 20:16] LABS: BUN (Urea Nitrogen) 11 mg/dL (7.0-18.7); Calc. Creatinine Clearance 0 mL/min (70-130); Estimated GFR-MDRD Greater than 90
[2018-09-19 20:17] LABS: AST (SGOT) 19 U/L (5-34)
[2018-09-19 20:18] LABS: ALT (SGPT) 17 U/L (8-55); CK (CPK) 80 U/L (29-168)
[2018-09-19] MEDS ORDERED: Potassium Chloride 40 MEQ in Sodium Chloride 0.9% 250 ML 250 ML IVPB SCH (20:45)
[2018-09-19] MEDS ORDERED: Lactated Ringer's 1,000 ML IV SCH (23:15)
[2018-09-19] MEDS ORDERED: Ondansetron PF 4 MG/2 ML Vial IVP PRN (23:18)
[2018-09-19] MEDS ORDERED: Ondansetron ODT 4 MG TAB PO PRN (23:18)
[2018-09-20 00:55] VITALS: BMI 23.8
[2018-09-20] MEDS: Lactated Ringer's 1,000 ML IV SCH ×2 (04:20→06:11)
[2018-09-20] MEDS: Nicotine 14 MG PATCH TD SCH (05:14)
[2018-09-20 05:32] LABS: Anion Gap 15 mmol/L (10-20); BUN (Urea Nitrogen) 10 mg/dL (7.0-18.7); Calc. Creatinine Clearance 225 mL/min (70-130); Calcium 8.2 mg/dL (7.8-10.44); Carbon Dioxide 17 mmol/L (22-29); Chloride 104 mmol/L (98-107); Estimated GFR-MDRD Greater than 90; Glucose 145 mg/dL (70-105); Potassium 4.6 mmol/L (3.5-5.1); Sodium 131 mmol/L (136-145)
[2018-09-20 05:36] LABS: Band 3 % (5-11); Hemoglobin 11.3 g/dL (12.0-16.0); Hypochromia SLIGHT = 6-15 cells (100X) (0-5/hpf); Lymphocytes 5 % (28-48); MDiff Complete? YES; Mean Corpuscular HGB CONC 31.9 g/dL (32.0-36.0); Mean Corpuscular Volume 84.6 fL (78.0-98.0); Mean Platelet Volume 10.4 fL (7.4-10.4); Monocytes 4 % (0-4); Neutrophil 88 % (31-61); PLT Morphology Comment Appears Decreased; Platelet Count 118 thou/uL (130-400); RBC Distribution Width 13.3 % (11.5-14.5); Red Blood Cell (RBC) Count 4.18 mill/uL (4.00-5.20); White Blood Cell (WBC) Count 10.9 thou/uL (4.8-10.8)
[2018-09-20 06:32] LABS: Actual Bicarbonate (HCO3a) 22.4 mEq/L (22-28); Base Excess (BEa) -0.8 mEq/L (-2.0 to +3.0); CO2 Tension 32.3 mmHg (35.0-45.0); Calcium, Ionized 1.18 mmol/L (1.12-1.30); Carboxyhemoglobin (COHb) 1.2 gm% (0.0-3.0); Potassium - ABG Lab 3.64 mmol/L (3.70-5.30); pH, Arterial 7.46 (7.35-7.45)
[2018-09-20 06:33] LABS: O2 Tension (PaO2) 54.8 mmHg (80.0-100.0)
[2018-09-20] MEDS ORDERED: Propofol 1,000 MG/100 ML VIAL IV ONE (06:43)
[2018-09-20 06:49] LABS: ALV-art Gradient 190.025 (0-20); Puncture Site RBA
[2018-09-20] MEDS ORDERED: CCU Electrolyte Replacement 1 EACH FS ONE (07:00)
[2018-09-20] MEDS ORDERED: Ventilator Sedation Protocol 1 EACH FS SCH (07:00)
[2018-09-20] MEDS ORDERED: Potassium Phosphate 15 MMOL in Sodium Chloride 0.9% 250 ML 250 ML IV PRN (07:31)
[2018-09-20] MEDS ORDERED: Potassium Phosphate 12 MMOL in Sodium Chloride 0.9% 250 ML 250 ML IV PRN (07:31)
[2018-09-20] MEDS ORDERED: Magnesium Oxide 400 MG TAB PO PRN ×2 (07:31)
[2018-09-20] MEDS ORDERED: fentaNYL Citrate/PF 2,000 MCG in Sodium Chloride 0.9% 60 ML IV SCH (07:31)
[2018-09-20] MEDS ORDERED: Fentanyl BOLUS 250 ML IVPB PRN (07:31)
[2018-09-20] MEDS ORDERED: CCU ELECTROLYTE REPLACEMENT PROTOCOL FS PRN (07:31)
[2018-09-20] MEDS ORDERED: Magnesium 2 GM/NS 0.9% 100 ML 2 GM in Premix Bag 1 BAG IVPB PRN (07:31)
[2018-09-20] MEDS ORDERED: Potassium Chloride 40 MEQ in Premix Bag 1 BAG IVPB PRN (07:31)
[2018-09-20] MEDS ORDERED: Potassium Phosphate 9 MMOL in Sodium Chloride 0.9% 100 ML IVPB PRN (07:31)
[2018-09-20] MEDS ORDERED: Lorazepam 2 MG/ML VIAL SLOW IVP PRN (07:31)
[2018-09-20] MEDS ORDERED: Potassium Chloride 40 MEQ in Sodium Chloride 0.9% 250 ML 250 ML IVPB PRN (07:31)
[2018-09-20] MEDS ORDERED: Propofol BOLUS 1,000 MG/100 ML VIAL IV PRN (07:31)
[2018-09-20] MEDS ORDERED: Potassium Chloride 20 MEQ TAB PO PRN (07:31)
[2018-09-20 07:36] LABS: Actual Bicarbonate (HCO3a) 22.5 mEq/L (22-28); Base Excess (BEa) 0.4 mEq/L (-2.0 to +3.0); CO2 Tension 28.9 mmHg (35.0-45.0); Calcium, Ionized 1.15 mmol/L (1.12-1.30); Carboxyhemoglobin (COHb) 0.5 gm% (0.0-3.0); Hemoglobin (Hb) 11.9 g/dL (11.4-15.4); O2 Tension (PaO2) 81.1 mmHg (80.0-100.0); Potassium - ABG Lab 4.06 mmol/L (3.70-5.30); pH, Arterial 7.51 (7.35-7.45)
[2018-09-20 07:38] LABS: ALV-art Gradient 239.275 (0-20); Puncture Site RBA
--- NOTE | 2018-09-20 07:41 | CON ---
DATE OF CONSULTATION: 09/20/2018 One-hour critical care time REASON FOR CONSULTATION: Overdose and acute respiratory failure. HISTORY OF PRESENT ILLNESS: The patient is a 18-year-old female, who apparently overdosed on several substances tonight including prazosin, Prozac, and BuSpar. She was admitted to the ICU wi thout an airway in place, although she was largely unresponsive upon arrival here. I was called by ricardo farias nursing staff about 6:15 a.m. this morning stating that the patient was using accessory muscles an d they felt she needed to be intubated. Upon my arrival, the patient was in florid respiratory distr ess, using accessory muscles, does not responsive to deep painful stimuli. PAST MEDICAL HISTORY: 1. She has had a previous suicide attempts with amitriptyline back in 05/2018 and was taking care of Dr. Delatorre at that time. 2. Depression. 3. Self-mutilation behavior. PAST SURGICAL HISTORY: Apparently none. ALLERGIES: BANANA, CAT DANDER, and MIRTAZAPINE. SOCIAL HISTORY: Consumption history is unknown at this time. REVIEW OF SYSTEMS: Unobtainable as the patient is intubated. PHYSICAL EXAMINATION: VITAL SIGNS: Heart rate 118, blood pressure 142/83, O2 saturation in the mid 90s on mechanical venti lation, respiratory rate now 18, her temperature is 97.9. GENERAL: This is 5 foot 11 inches and 171 pounds female, who is unresponsive to deep painful stimula tion. HEENT: Pupils are reactive. Sclerae icteric. Oropharynx clear. NECK: No adenopathy, JVD, or bruits. LUNGS: Coarse breath sounds bilaterally. CARDIOVASCULAR: S1, S2, tachycardic. No murmur. ABDOMEN: Soft, without tenderness. EXTREMITIES: She has fresh cuts over her left forearm. She has some well-healed cuts over both thig hs. LABORATORY AND X-RAY FINDINGS: White blood cell count 10.9, hematocrit 35.4, platelet count 118. So dium 131, potassium 4.6, chloride 104, CO2 of 17, BUN 10, creatinine 0.5, glucose 145. Tox screen wa s negative. Alcohol level was 11. Chest x-ray is currently pending. ASSESSMENT: 1. Overdose - polysubstance. 2. Altered mental status. 3. Acute respiratory failure. PLAN: 1. I intubated the patient on first attempt with 7.5 endotracheal tube orally using GlideScope for v isualization. Tube placement was confirmed by auscultation, visualization, and chest radiography. 2. The patient will be supported with IV fluids. Hemodynamic support as necessary and will remain i ntubated until mental status improves.
[2018-09-20] MEDS ORDERED: Morphine 2 MG/ML SYRINGE SLOW IVP PRN (07:45)
--- NOTE | 2018-09-20 07:57 | RAD ---
PORTABLE FRONTAL SUPINE CHEST RADIOGRAPH: 09/20/2018 HISTORY: Newly intubated patient. COMPARISON: 05/23/2015 FINDINGS: There is an endotracheal tube projecting over the tracheal air column. The distal tip of the endotra cheal tube is approximately 1.5 cm proximal to the level of the clavicular heads. Monitoring devices limit detailed assessment of the mediastinum and left lung base. Hazy interstitial opacity is suspe cted in the right perihilar region and in the right lung base, which may signify infiltrate, on the b asis of infectious pneumonitis or aspiration. Supine imaging limits assessment for pleural fluid and pneumothorax. IMPRESSION: 1. Endotracheal tube in place. 2. Opacity in the right lung base, as detailed above. POS: ONEY[facility]
--- NOTE | 2018-09-20 08:13 | HP ---
CHIEF COMPLAINT: Suicidal attempt. HISTORY OF PRESENT ILLNESS: This is a 18-year-old female with past medical history of bipolar, histo ry of suicide attempt in the past, last attempt was in 05/19/2018. The patient is presenting after dawit mari found unresponsive at home per medical staff, electronic medical records and patient's mom. The patient called her around 4:30 and patient wanted to know what time she was going to come home and ricardo hat was the last time patient was known well. The patient then per records called 911 and per the mo ther, the patient's Snapchat showed that patient was having some sort of an event on her Snapchat, so therefore patient's boyfriend and mother became very worried. They went to the house and the patien ricardo has taken all her medications. The patient just filled all her psych medications on 09/11/2018 and the medication that patient filled specifically was Zyprexa 10 mg dose, prazosin 2 mg dosage, buspir one 15 mg dose and patient took all her medications at once and her bottles were empty in the house. Normally per the mother, patient's medications but on this specific day, patient's medication was not locked and the patient was able to get access in her medication and she took all her medicati ons once. The patient has had this in the past and patient has had suicide ideation multiple times; therefore, this is a repeat attempt. REVIEW OF SYSTEMS: Currently, unable to be obtained due to mental status. PAST MEDICAL HISTORY: Bipolar disorder, anxiety, major depressive disorder, PTSD. FAMILY HISTORY: Dad has mental illness alcoholic and drug user. Mom is an addict from ethanol and she is actually trying to quit. PSYCHIATRIC HISTORY: Anxiety, bipolar, major depressive disorder, PTSD. SOCIAL HISTORY: No ethanol use. No illicit drugs. The patient dips with nicotine. KNOWN ALLERGIES: The patient is allergic to BANANA, MIRTAZAPINE, REMERON. CURRENT MEDICATIONS: The patient is on prazosin, Risperdal, Wellbutrin, prednisone, Prozac, albutero l. PHYSICAL EXAMINATION: VITAL SIGNS: Blood pressure is 109/71, pulse of 71, respiratory rate of 22, temperature of 98.3, O2 sat of 96. GENERAL APPEARANCE: The patient is currently withdrawing to pain; however, patient is lethargic, on nasal cannula, does not respond to verbal stimuli. HEENT: Head: Normocephalic, atraumatic. Pupils are equal, round, and reactive to light, but sluggi sh. Mucous membranes are dry. The patient has nasal cannula in place. The patient is maintaining h er airway at this time. LUNGS: Clear to auscultation bilaterally. The patient has symmetric chest elevations. CARDIOVASCULAR: The patient is tachycardic. No murmurs appreciated. ABDOMEN: Soft, nontender, nondistended. Positive bowel sounds in all quadrants. No peritoneal sign s. EXTREMITIES: Good pulses, upper and lower extremities. The patient is able to withdraw to painful s timuli. NEUROLOGIC: Unable to be obtained. The patient is currently lethargic, responds to painful stimuli. SKIN: Warm, dry, and intact. PSYCHIATRIC: Suicidal ideation. EKG showed sinus tachycardia. ED COURSE: The patient received 4 mg of Ativan, magnesium 2 grams, lactated Ringer's of 200 mL, pota ssium chloride IV of 400 mEq. LABORATORY DATA: WBC 6.5, hemoglobin 12.9, hematocrit is 39.4, platelet count is 185. Sodium is 138 , potassium is 3.2, chloride is 107, carbon dioxide of 20, BUN is 11, creatinine is 0.69, glucose is 131, magnesium is 3.2. TSH is 1.8037. AST is 19, ALT is 17. Urine negative for nitrite, negative f or leukoesterase. Urine drug tox, plasma alcohol is 11, otherwise all negative. ASSESSMENT AND PLAN: This is a 18-year-old female with past medical history significant for suicidal attempt. 1. The patient is being admitted for altered mental status and unresponsiveness due to medication ov erdose. The patient is currently encephalopathic. The patient's medication bottles are currently em pty. Poison Control has been contacted at this point. We are managing the patient supportively. We will continue patient on IV fluids. We will put patient on aspiration precaution. We will monitor patient closely in the ICU. 2. Sinus tachycardia likely due to medication overdose and encephalopathy. We will monitor the denice ent's heart rate at this time. We have consulted Cardiology. We will follow up with their recommend ations. 3. Bipolar disease. At this point, patient's medications are being held due to suicidal attempt. DISPOSITION: The patient will need MR, examined the patient for possible placement due to the denice ent's history of suicidal attempts.
[2018-09-20] MEDS: Enoxaparin Sodium 40 MG/0.4 ML SYRINGE SC SCH (08:58)
[2018-09-20] MEDS: Pantoprazole 40 MG VIAL IVP SCH (08:59)
[2018-09-20] MEDS: Sodium Chloride 0.9% 1,000 ML IV SCH ×3 (09:03→23:38)
--- NOTE | 2018-09-20 10:10 | CON ---
DATE OF CONSULTATION: 09/20/2018 REASON FOR CONSULTATION: Tachycardia. HISTORY OF PRESENT ILLNESS: Mrs. Rea is a 18-year-old white female, who comes to the hospital aft er a suicidal attempt. She overdosed on several different medications and was admitted for this. Randy foy eventually went into respiratory distress and had to be intubated to protect her airway. During al l this time, she has been tachycardic, heart rate in the 120s to 170s, mostly sinus tachycardia. She actually had Zyprexa, prazosin, and BuSpar, and she took all her prescriptions that once she had jus t filled them up. Currently, she is intubated, on no sedation. Minimally responsive. PAST MEDICAL HISTORY: 1. Bipolar disorder. 2. Recent suicide attempt. 3. Major depression. 4. Post-traumatic stress disorder. SOCIAL HISTORY: She dips nicotine. No evidence of drugs. Chart says no ethanol use; however, she h as a positive alcohol level in her blood. OUTPATIENT MEDICATIONS: 1. Prazosin. 2. Risperdal. 3. Wellbutrin. 4. Prednisone. 5. Prozac. 6. Albuterol. FAMILY HISTORY: Noncontributory. REVIEW OF SYSTEMS: Unable to obtain, as she is intubated. ALLERGIES: BANANA, MIRTAZAPINE, and REMERON. PHYSICAL EXAMINATION: VITAL SIGNS: Temperature 97.9, pulse 130, respiratory rate 31, satting 100% on 40% FiO2. GENERAL: Intubated, on no sedation. She responds to pain stimuli, but she does not open her eyes sp ontaneously. She only moves her head. NECK: Supple. LUNGS: Clear to auscultation. CARDIOVASCULAR: Tachycardic. S1 and S2, no S3 or S4, no murmurs. ABDOMEN: Soft, positive bowel sounds. EXTREMITIES: No edema. SKIN: Warm and dry. LABORATORY WORK: Reviewed. White count of 10.9, hemoglobin of 11.3, hematocrit of 35, platelet coun t of 118. ABG was reviewed. Chemistries were reviewed. UA showed moderate blood. Toxicology with 11 of alcohol, otherwise unremarkable. Most recent echocardiogram was in May of this year, showed a normal EF. ASSESSMENT AND PLAN: 1. Sinus tachycardia: Likely related to her acute illness. She has a mildly longer QT than normal, this is something to watch out for. I would repeat an EKG daily. Her risk with a prolonged QT is g oing into torsades. So, I would recommend keeping the pads on her chest at all times in case she wer e to need defibrillation. No indication for any antiarrhythmics at this time. This would only make her heart more proarrhythmic. 2. Suicide attempt. 3. Acute hypoxic respiratory insufficiency, on mechanical ventilation. PLAN: 1. Continue to monitor. 2. Continue to keep the pads in place in case she will go into torsades. 3. Supportive care. We will follow.
[2018-09-20] MEDS: Piperacillin/Tazobactam 3.375 GM in Sodium Chloride 0.9% 100 ML IVPB SCH ×3 (11:10→23:38)
[2018-09-20] MEDS: Acetaminophen 325 MG TAB PO PRN (11:18)
[2018-09-20] MEDS: Fluconazole In NaCl,Iso-Osm 200 MG in Premix Bag 1 BAG IVPB SCH (11:22)
--- NOTE | 2018-09-20 12:21 | PQF ---
CLINICAL DOCUMENTATION IMPROVEMENT CLARIFICATION FORM: ICD-10 Updated PLEASE DO AN ADDENDUM TO THE PROGRESS NOTE WITH ANY DOCUMENTATION UPDATES OR ADDITIONS AND CARRY THROUGH TO DC SUMMARY. THANK YOU. DATE: 09/20/18 ATTN: DR. JACK Please exercise your independent, professional judgment in responding to the clarification form. Clinical indicators are provided on the bottom of this form for your review Please check appropriate box(s): [ x] Encephalopathy: Type: [ x] Acute [ ] Subacute [ ] Chronic Etiology: [ ] Hypertensive [ ] Metabolic [ x] Toxic [ ] Hepatic with Coma [ ] Hepatic w/o Coma [ ] Hypoxic [ ] Septic [ ] Drug induced: [ ] Unspecified [ ] in the setting of underlying dementia [ ] Other (please specify) [ ] Transient Alteration of Awareness [ ] Other diagnosis [ ] Unable to determine In addition, please specify: Present on Admission (POA): [ x] Yes [ ] No [ ] Unable to determine For continuity of documentation, please document condition throughout progress notes and discharge summary. Thank You. 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 All Rights Reserved KARSTEN [email or web address] Office: [phone] [facility] CENTERMoisés
[2018-09-20 12:39] LABS: BHCG - Serum Negative (NEGATIVE); Pregs Control Background? CLEAR/WHITE (CLR/WHITE); Pregs Control Bar Appear? YES (CONTROL BAR)
[2018-09-20] MEDS: Propofol 1,000 MG/100 ML VIAL IV PRN ×2 (15:12→20:09)
--- NOTE | 2018-09-20 15:38 | PDOC.PN ---
- Subjective Encounter Start Date: 09/20/18 Encounter Start Time: 09:50 Intubated, sedated. - Objective Resuscitation Status: Resuscitation Status FULL:Full Resuscitation Vital Signs & Weight: Vital Signs (12 hours) Temp Pulse Resp BP Pulse Ox 09/20/18 14:10 115 H 09/20/18 13:00 99.2 F 09/20/18 12:38 129 H 108/67 09/20/18 12:00 22 H 09/20/18 10:16 127 H 09/20/18 10:00 101.0 F H 09/20/18 08:00 22 H 100 09/20/18 06:51 129 H 09/20/18 06:00 93 L 09/20/18 04:00 97.9 F Weight Admit Weight 171 lb Weight 171 lb Most Recent Monitor Data Heart Rate from ECG 117 NIBP 103/61 NIBP BP-Mean 75 Respiration from ECG 18 SpO2 99 I&O: 09/19/18 09/20/18 09/21/18 06:59 06:59 06:59 Intake Total 1888 Output Total 715 1385 Balance 1173 -1385 Result Diagrams: 09/20/18 04:31 09/20/18 04:31 Phys Exam - Physical Examination Intubated Respiratory: no wheezing, no rales, no rhonchi Cardiovascular: RRR, no significant murmur, no rub Tachycardic Gastrointestinal: soft, non-tender, no distention, positive bowel sounds Musculoskeletal: no edema Dx/Plan (1) Overdose Code(s): T50.901A - POISONING BY UNSP DRUG/MEDS/BIOL SUBST, ACCIDENTAL, INIT Status: Acute (2) Bipolar disorder Code(s): F31.9 - BIPOLAR DISORDER, UNSPECIFIED Status: Acute (3) Sinus tachycardia Code(s): R00.0 - TACHYCARDIA, UNSPECIFIED Status: Acute (4) Suicide attempt Status: Acute (5) Acute respiratory failure Code(s): J96.00 - ACUTE RESPIRATORY FAILURE, UNSP W HYPOXIA OR HYPERCAPNIA Status: Acute - Plan * Polysubstance overdose with respiratory failure. Intubated and sedated. Supportive care, hydrate and allow time for metabolism. Will need [facility] when medically stable.
[2018-09-20] MEDS ORDERED: Sodium Chloride 0.9% 500 ML IV SCH (17:00)
[2018-09-21] MEDS: Propofol 1,000 MG/100 ML VIAL IV PRN ×3 (01:46→09:52)
[2018-09-21 04:11] LABS: #Eosinphils 0.1 thou/uL (0.0-0.7); #Lymphocytes 1.6 thou/uL (1.20-3.40); #Monocytes 1.1 thou/uL (0.11-0.59); #Neutrophils 9.7 thou/uL (1.40-6.50); %Basophils 0.3 % (0.0-1.0); %Eosinophils 0.6 % (0.0-10.0); %Lymphocytes 12.9 % (28.0-48.0); %Monocytes 8.7 % (0.0-4.0); %Neutrophils 77.6 % (31.0-61.0); Hemoglobin 10.6 g/dL (12.0-16.0); Mean Corpuscular HGB CONC 31.1 g/dL (32.0-36.0); Mean Corpuscular Hemoglobin 26.7 pg (25.0-35.0); Mean Corpuscular Volume 85.7 fL (78.0-98.0); Mean Platelet Volume 8.9 fL (7.4-10.4); Platelet Count 174 thou/uL (130-400); RBC Distribution Width 13.6 % (11.5-14.5); Red Blood Cell (RBC) Count 3.98 mill/uL (4.00-5.20); White Blood Cell (WBC) Count 12.5 thou/uL (4.8-10.8)
[2018-09-21 04:30] LABS: Anion Gap 12 mmol/L (10-20); BUN (Urea Nitrogen) 7 mg/dL (7.0-18.7); Calc. Creatinine Clearance 151 mL/min (70-130); Calcium 8.9 mg/dL (7.8-10.44); Carbon Dioxide 24 mmol/L (22-29); Chloride 110 mmol/L (98-107); Estimated GFR-MDRD Greater than 90; Glucose 83 mg/dL (70-105); Potassium 3.7 mmol/L (3.5-5.1); Sodium 142 mmol/L (136-145)
[2018-09-21] MEDS: Piperacillin/Tazobactam 3.375 GM in Sodium Chloride 0.9% 100 ML IVPB SCH ×3 (05:00→17:16)
[2018-09-21] MEDS: Nicotine 14 MG PATCH TD SCH (05:03)
[2018-09-21] MEDS: Sodium Chloride 0.9% 1,000 ML IV SCH ×4 (05:29→21:45)
[2018-09-21 06:53] LABS: Actual Bicarbonate (HCO3a) 21.6 mEq/L (22-28); CO2 Tension 32.9 mmHg (35.0-45.0); Carboxyhemoglobin (COHb) 0.7 gm% (0.0-3.0); Hemoglobin (Hb) 10.7 g/dL (11.4-15.4); O2 Tension (PaO2) 146.9 mmHg (80.0-100.0); Potassium - ABG Lab 3.66 mmol/L (3.70-5.30); pH, Arterial 7.44 (7.35-7.45)
[2018-09-21 07:02] LABS: ALV-art Gradient 97.175 (0-20); Puncture Site RRA
--- NOTE | 2018-09-21 07:54 | PDOC.CTH ---
Cardiology Progress Note - Subjective Intubated, sedated. HR remains elevated. Trends over last 24 hours reviewed and is in the 100-110. QT appears stable on tele - Objective Vital Signs Temp Pulse Resp BP Pulse Ox 09/21/18 06:35 93 104/57 L 09/21/18 06:00 16 09/21/18 04:00 98.4 F 20 09/21/18 02:14 87 13 100 09/21/18 02:00 23 H 09/21/18 00:00 98.3 F 13 09/20/18 22:03 88 09/20/18 22:02 92 20 100 09/20/18 22:00 14 09/20/18 20:00 98.3 F 12 99 Admit Weight 171 lb Weight 169 lb 8.568 oz 09/20/18 09/21/18 09/22/18 06:59 06:59 05:59 Intake Total 1888 4663 Output Total 715 5075 Balance 1173 -412 - Physical Examination General/Neuro: NAD Neck: no JVD present Lungs: CTA, unlabored respirations Heart: RRR Abdomen: NT/ND, soft Extremities: + femoral B - Telemetry Telemetry Rhythm: ST - Labs Result Diagrams: 09/21/18 03:45 09/21/18 03:45 - Assessment/Plan Tachycardia Recnet Overdose in suicide attempt Pt with ST QT appears normal Check EKG No current changes
[2018-09-21] MEDS: Enoxaparin Sodium 40 MG/0.4 ML SYRINGE SC SCH (08:04)
[2018-09-21] MEDS: Pantoprazole 40 MG VIAL IVP SCH (08:05)
[2018-09-21] MEDS: Fluconazole In NaCl,Iso-Osm 200 MG in Premix Bag 1 BAG IVPB SCH (11:20)
--- NOTE | 2018-09-21 11:32 | RAD ---
PORTABLE CHEST: COMPARISON: 09/20/2018 exam. HISTORY: Respiratory distress. FINDINGS: There has been interval placement of an NG tube with the tip below the hemidiaphragm. The parahilar and lower lobe parenchymal changes seen on the prior examination, which are more pronounced in the ri ght parahilar location, show some slight improvement. IMPRESSION: 1. Endotracheal and nasogastric tubes in satisfactory position. 2. Slightly increased bibasilar and parahilar lung changes more pronounced on the right side. Some of the changes on the left are obscured. The asymmetry suggests possibly a pneumonia or possibly an asymmetric edema pattern. It appears minimally improved as compared to the prior exam. POS: [facility]
--- NOTE | 2018-09-21 12:58 | PDOC.PN ---
- Subjective Encounter Start Date: 09/21/18 Encounter Start Time: 09:30 - Objective Resuscitation Status: Resuscitation Status FULL:Full Resuscitation Vital Signs & Weight: Vital Signs (12 hours) Temp Pulse Resp BP Pulse Ox 09/21/18 10:35 114 H 23 H 98 09/21/18 10:00 15 09/21/18 08:00 98.5 F 12 09/21/18 06:35 93 104/57 L 09/21/18 06:00 16 09/21/18 04:00 98.4 F 20 09/21/18 02:14 87 13 100 09/21/18 02:00 23 H Weight Admit Weight 171 lb Weight 169 lb 8.568 oz Most Recent Monitor Data Heart Rate from ECG 109 NIBP 113/72 NIBP BP-Mean 85 Respiration from ECG 23 SpO2 98 I&O: 09/20/18 09/21/18 09/22/18 06:59 06:59 05:59 Intake Total 1888 4663 165 Output Total 712 5040 1325 Balance 8413 -332 -1341 Result Diagrams: 09/21/18 03:45 09/21/18 03:45 Dx/Plan (1) Overdose Code(s): T50.901A - POISONING BY UNSP DRUG/MEDS/BIOL SUBST, ACCIDENTAL, INIT Status: Acute Comment: Several meds involved. (2) Bipolar disorder Code(s): F31.9 - BIPOLAR DISORDER, UNSPECIFIED Status: Acute (3) Sinus tachycardia Code(s): R00.0 - TACHYCARDIA, UNSPECIFIED Status: Acute Comment: Cardiology following. Normal Qt (4) Suicide attempt Status: Acute Comment: Will need to have [facility] see the patient when medically stable. (5) Acute respiratory failure Code(s): J96.00 - ACUTE RESPIRATORY FAILURE, UNSP W HYPOXIA OR HYPERCAPNIA Status: Acute Comment: Pulmonary following. (6) Aspiration pneumonia Code(s): J69.0 - PNEUMONITIS DUE TO INHALATION OF FOOD AND VOMIT Status: Acute Comment: On Zosyn. - Plan * Wean per Pulmonary/CC. * Continue IV abx. * [facility] when medically stable.
--- NOTE | 2018-09-21 16:49 | PRG ---
DATE OF SERVICE: 09/21/2018 SUBJECTIVE: Ms. Rea is awake this morning. She was in no distress. Ventilatory rate was decreased. She passed a spontaneous breathing trial and a leak test. PHYSICAL EXAMINATION: VITAL SIGNS: She is afebrile. Her blood pressure 111/73, heart rate 106. LUNGS: Clear. HEART: Regular rhythm. ABDOMEN: Soft. LABORATORY DATA: White count 12.5, hemoglobin 10.6, platelets 174,000. Sodium 142, potassium 3.7, chloride 110, bicarbonate 24, BUN 7, creatinine 0.73. IMPRESSION: Respiratory failure secondary to drug overdose clinically stable for extubation. This has been done successfully. She is in no distress. Critical care time was 30 minutes. MTDD
[2018-09-21] MEDS: Acetaminophen 325 MG TAB PO PRN (20:51)
[2018-09-22] MEDS: Piperacillin/Tazobactam 3.375 GM in Sodium Chloride 0.9% 100 ML IVPB SCH ×4 (00:07→18:03)
[2018-09-22 03:52] LABS: #Eosinphils 0.2 thou/uL (0.0-0.7); #Lymphocytes 2.4 thou/uL (1.20-3.40); #Monocytes 1.1 thou/uL (0.11-0.59); %Basophils 0.4 % (0.0-1.0); %Eosinophils 2.1 % (0.0-10.0); %Lymphocytes 24.5 % (28.0-48.0); %Monocytes 11.4 % (0.0-4.0); %Neutrophils 61.5 % (31.0-61.0); Hemoglobin 10.4 g/dL (12.0-16.0); Mean Corpuscular HGB CONC 31.4 g/dL (32.0-36.0); Mean Corpuscular Hemoglobin 26.5 pg (25.0-35.0); Mean Corpuscular Volume 84.5 fL (78.0-98.0); Mean Platelet Volume 8.6 fL (7.4-10.4); Platelet Count 193 thou/uL (130-400); RBC Distribution Width 13.5 % (11.5-14.5); Red Blood Cell (RBC) Count 3.93 mill/uL (4.00-5.20); White Blood Cell (WBC) Count 9.7 thou/uL (4.8-10.8)
[2018-09-22 04:10] LABS: Anion Gap 12 mmol/L (10-20); BUN (Urea Nitrogen) 10 mg/dL (7.0-18.7); Calc. Creatinine Clearance 147 mL/min (70-130); Calcium 8.9 mg/dL (7.8-10.44); Carbon Dioxide 21 mmol/L (22-29); Chloride 110 mmol/L (98-107); Estimated GFR-MDRD Greater than 90; Glucose 75 mg/dL (70-105); Potassium 3.7 mmol/L (3.5-5.1); Sodium 139 mmol/L (136-145)
[2018-09-22] MEDS: Nicotine 14 MG PATCH TD SCH (07:19)
[2018-09-22] MEDS: Enoxaparin Sodium 40 MG/0.4 ML SYRINGE SC SCH (09:43)
[2018-09-22] MEDS: Pantoprazole 40 MG VIAL IVP SCH (09:43)
[2018-09-22] MEDS: Fluconazole In NaCl,Iso-Osm 200 MG in Premix Bag 1 BAG IVPB SCH (09:44)
--- NOTE | 2018-09-22 09:54 | PDOC.CTH ---
Cardiology Progress Note - Subjective pt extubated. Somnolent. HR inthe 100's - Objective Vital Signs Temp 09/22/18 08:00 99.5 F 09/22/18 04:00 97.7 F 09/22/18 00:00 97.6 F Admit Weight 171 lb Weight 169 lb 8.568 oz 09/21/18 09/22/18 09/23/18 07:59 06:59 06:59 Intake Total Output Total 20 Balance -20 - Physical Examination General/Neuro: NAD Neck: no JVD present Lungs: CTA, unlabored respirations Heart: PMI normal, RRR Abdomen: NT/ND, soft Extremities: + femoral B - Labs Result Diagrams: 09/22/18 03:28 09/22/18 03:28 - Assessment/Plan Tachycardia Recent Overdose in suicide attempt No new recommendations. QT stable from yesterdays EKG No new CV recs.
--- NOTE | 2018-09-22 10:23 | RAD ---
PORTABLE CHEST: HISTORY: Respiratory distress. COMPARISON: 09/21/2018 exam. FINDINGS: Heart size is enlarged. Endotracheal and NG tubes have been removed. Parenchymal changes in the rig ht base are fairly similar to the prior examination. Minimal change is still seen within the left ba se. IMPRESSION: Interval removal of the endotracheal and nasogastric tubes. Persistent bibasilar lung changes which are worse on the right appear relatively stable. POS: [facility]
[2018-09-22] MEDS: Sodium Chloride 0.9% 1,000 ML IV SCH ×2 (12:08→22:30)
--- NOTE | 2018-09-22 12:38 | PDOC.PN ---
- Subjective Encounter Start Date: 09/22/18 Encounter Start Time: 11:40 Denies complaints other than being very sleepy. - Objective Resuscitation Status: Resuscitation Status FULL:Full Resuscitation Vital Signs & Weight: Vital Signs (12 hours) Temp Pulse Resp BP Pulse Ox 09/22/18 11:26 98 09/22/18 11:19 98.8 F 92 16 109/65 98 09/22/18 08:00 99.5 F 97 09/22/18 04:00 97.7 F Weight Admit Weight 171 lb Weight 169 lb 8.568 oz Most Recent Monitor Data Heart Rate from ECG 102 NIBP 117/86 NIBP BP-Mean 96 Respiration from ECG 26 SpO2 98 I&O: 09/21/18 09/22/18 09/23/18 07:59 06:59 06:59 Intake Total 150 Output Total 770 Balance -620 Result Diagrams: 09/22/18 03:28 09/22/18 03:28 Phys Exam - Physical Examination Constitutional: NAD Very somnolent. Will awaken and speak. Respiratory: no wheezing, no rales, no rhonchi, clear to auscultation bilateral Cardiovascular: RRR, no significant murmur, no rub Gastrointestinal: soft, non-tender, no distention, positive bowel sounds Musculoskeletal: no edema Deviation from normal: Somnolent Dx/Plan (1) Overdose Code(s): T50.901A - POISONING BY UNSP DRUG/MEDS/BIOL SUBST, ACCIDENTAL, INIT Status: Acute Comment: Several meds involved. Improving. (2) Bipolar disorder Code(s): F31.9 - BIPOLAR DISORDER, UNSPECIFIED Status: Acute Comment: No resumption of meds until sensorium is completely normalized. (3) Sinus tachycardia Code(s): R00.0 - TACHYCARDIA, UNSPECIFIED Status: Acute Comment: Cardiology following. Normal Qt. No new Cards rec. (4) Suicide attempt Status: Acute Comment: [facility] consult. (5) Acute respiratory failure Code(s): J96.00 - ACUTE RESPIRATORY FAILURE, UNSP W HYPOXIA OR HYPERCAPNIA Status: Acute Comment: Extubated yesterday. Doing well. (6) Aspiration pneumonia Code(s): J69.0 - PNEUMONITIS DUE TO INHALATION OF FOOD AND VOMIT Status: Acute Comment: On Zosyn. Stable. No fever or leukocytosis. Can change to oral Augmentin by tomorrow. - Plan * Much improved. * [facility] consult. * Sitter. * Resume meds for bipolar DO when more awake. * DVT prophylaxis.
--- NOTE | 2018-09-22 16:58 | PRG ---
DATE OF SERVICE: 09/22/2018 SUBJECTIVE: Ms. Rea has no complaints. Her mother is sitting in the room. Vital signs have been stable. OBJECTIVE: VITAL SIGNS: She is afebrile, heart rate is stable, respiratory rate 16, oximetry is 90 on room air. LUNGS: Clear. HEART: Regular rhythm. ABDOMEN: Soft and nontender. EXTREMITIES: Without asymmetry. She has no recollection of yesterday. LABORATORY DATA: White count 9.7, hemoglobin 10.4, platelets 193. Sodium 139, potassium 3.7, chloride 110, bicarbonate 21, BUN 10, creatinine 0.74. IMPRESSION: Drug overdose, clinically stable, medically for an [facility] evaluation. PLAN: She is stable to move out of the Critical Care Unit with somebody sitting with her. MELANY
--- NOTE | 2018-09-22 20:23 | DIS ---
DATE OF ADMISSION: 09/19/2018 DATE OF DISCHARGE: 09/22/2018 DISCHARGE DIAGNOSES: 1. Polypharmacy overdose. 2. Toxic encephalopathy. 3. Respiratory failure. 4. Bipolar disorder. 5. Possible aspiration pneumonia. HOSPITAL COURSE: The patient is a 18-year-old female with a history of bipolar disorder and prior hodge icide attempts who was found down by family and had apparently taken all of her medications. The pat ient was unresponsive. Presumably, she took Zyprexa, prazosin, buspirone. The patient was brought t o the emergency department and subsequently became too somnolent to protect airway and appeared to hernandez ve some respiratory distress and was intubated and placed in the ICU. The patient's chest x-ray was concerning for the possibility of some aspiration. She had been covered with broad-spectrum antibiot ics, specifically Zosyn. The patient did well over the following couple of days with no events. She was able to be extubated and transferred out of ICU to the floor. She remained somnolent but had no other specific concerns or complaints. She was evaluated by [facility] to continued suicidal ideation. The patient has subsequently been accepted to [facility] and she will be transferred there today. DISCHARGE MEDICATIONS: Include Augmentin 875 one p.o. b.i.d., BuSpar 15 mg every day, Prozac 10 mg e very day, ibuprofen p.r.n., Zyprexa 10 mg q.h.s., prazosin 2 mg 2 p.o. at bedtime, and Topamax 50 mg p.o. b.i.d. These medicines should likely be resumed tomorrow once the patient is more fully awake, however, that will be a decision made by the inpatient psychiatric physicians. She is to have a regu lar diet. Her activity level is as tolerated. She can return to emergency department should she hav e any problems prior to that time.
[2018-09-23] MEDS: Piperacillin/Tazobactam 3.375 GM in Sodium Chloride 0.9% 100 ML IVPB SCH ×2 (01:47→07:33)
[2018-09-23] MEDS: Sodium Chloride 0.9% 1,000 ML IV SCH (05:07)
[2018-09-23 05:16] LABS: #Eosinphils 0.4 thou/uL (0.0-0.7); #Lymphocytes 2.2 thou/uL (1.20-3.40); #Monocytes 0.7 thou/uL (0.11-0.59); #Neutrophils 3.6 thou/uL (1.40-6.50); %Basophils 0.6 % (0.0-1.0); %Eosinophils 5.7 % (0.0-10.0); %Lymphocytes 31.5 % (28.0-48.0); %Monocytes 10.5 % (0.0-4.0); %Neutrophils 51.7 % (31.0-61.0); Hemoglobin 10.8 g/dL (12.0-16.0); Mean Corpuscular HGB CONC 31.2 g/dL (32.0-36.0); Mean Corpuscular Hemoglobin 26.1 pg (25.0-35.0); Mean Corpuscular Volume 83.7 fL (78.0-98.0); Mean Platelet Volume 8.8 fL (7.4-10.4); Platelet Count 211 thou/uL (130-400); RBC Distribution Width 13.3 % (11.5-14.5); Red Blood Cell (RBC) Count 4.15 mill/uL (4.00-5.20)
[2018-09-23 05:22] LABS: Anion Gap 12 mmol/L (10-20); BUN (Urea Nitrogen) 11 mg/dL (7.0-18.7); Calc. Creatinine Clearance 150 mL/min (70-130); Calcium 9.4 mg/dL (7.8-10.44); Carbon Dioxide 25 mmol/L (22-29); Chloride 106 mmol/L (98-107); Estimated GFR-MDRD Greater than 90; Glucose 80 mg/dL (70-105); Potassium 3.6 mmol/L (3.5-5.1); Sodium 139 mmol/L (136-145)
[2018-09-23] MEDS: Nicotine 14 MG PATCH TD SCH (07:34)
[2018-09-23 08:11] VITALS: BP 110/65; TEMP 97.9
[2018-09-23] MEDS: Pantoprazole 40 MG VIAL IVP SCH (08:20)
--- NOTE | 2018-09-23 09:24 | RAD ---
CHEST ONE VIEW: History: Dyspnea. Follow up. Comparison: 09-22-18 FINDINGS: Cardiac silhouette is magnified and upper limits of normal in size. Pulmonary vasculature is also upp er limits of normal. Mediastinum is midline. No lobar consolidation or evidence of pneumothorax. IMPRESSION: Interval clearing of the bibasilar infiltrates. No new abnormalities are demonstrated. POS: [facility]
--- NOTE | 2018-09-23 11:59 | EKG ---
Test Reason : Blood Pressure : / mmHG Vent. Rate : 103 BPM Atrial Rate : 103 BPM P-R Int : 146 ms QRS Dur : 078 ms QT Int : 340 ms P-R-T Axes : 036 038 030 degrees QTc Int : 445 ms Sinus tachycardia Low voltage QRS Borderline ECG Confirmed by JERSEY JUSTICE ([id number]) on 09/23/2018 11:58:59 AM Referred By: TED Confirmed By:JERSEY JUSTICE
--- NOTE | 2018-09-30 16:54 | EKG ---
Test Reason : Blood Pressure : / mmHG Vent. Rate : 152 BPM Atrial Rate : 152 BPM P-R Int : 000 ms QRS Dur : 076 ms QT Int : 322 ms P-R-T Axes : 000 011 026 degrees QTc Int : 511 ms Sinus tachycardia Low voltage QRS Nonspecific T wave abnormality Prolonged QTc Abnormal ECG Confirmed by RYAN BAGLEY DO ([id number]), brands editor SUBHA BROWN ([id number]) on 09/30/2018 4:54:02 PM Referred By: Confirmed By:RYAN BAGLEY DO
== END 2018-09-23 10:17 | DRG 917 ==
LOC: ERS 18:28 → CCU 23:21 → T4-A 09-22 11:15
PROVIDERS: ADMIT Internal Medicine; ATTEND Internal Medicine
PROC: 0BH17EZ Insertion of Endotracheal Airway into Trachea, Via Natural or Artificial Opening (ICD-10-PCS; principal; 2018-09-20)
PROC: 5A1935Z Respiratory Ventilation, Less than 24 Consecutive Hours (ICD-10-PCS; 2018-09-20)
DX: T43.592A Poisoning by other antipsychotics and neuroleptics, intentional self-harm, initial encounter (principal); G92 Toxic encephalopathy; J96.00 Acute respiratory failure, unspecified whether with hypoxia or hypercapnia; J69.0 Pneumonitis due to inhalation of food and vomit; T44.6X2A Poisoning by alpha-adrenoreceptor antagonists, intentional self-harm, initial encounter; Y92.009 Unspecified place in unspecified non-institutional (private) residence as the place of occurrence of the external cause; F31.9 Bipolar disorder, unspecified; F41.9 Anxiety disorder, unspecified; F43.10 Post-traumatic stress disorder, unspecified; R00.0 Tachycardia, unspecified; R40.2422 Glasgow coma scale score 9-12, at arrival to emergency department; Z91.5 Personal history of self-harm; Z81.1 Family history of alcohol abuse and dependence; Z81.3 Family history of other psychoactive substance abuse and dependence
CPT/HCPCS: 36415; 71045; 80048; 80053; 80306; 80307; 81003; 81015; 82550; 82805; 83735; 84443; 84703; 85007; 85025; 85027; 93005; 93010; 93306; 94002; 94003; 94640; 96365; 96366; 96367; 96375; A4353; C9113; J1450; J1650; J2060; J2543; J2704; J3411; J3480; J7050; J7620

== ENCOUNTER 2020-11-02 16:55 | Emergency (ER) | payer OTHER ==
--- NOTE | 2020-11-02 17:23 | RAD ---
Chest AP view INDICATION: Chest pain COMPARISON: Prior exam dated September 23, 2008 FINDINGS: Lungs: The lungs are clear Cardiac silhouette: The cardiomediastinal silhouette appears within normal limits. Pulmonary vasculature: Normal Pleural spaces: No pleural effusion or pneumothorax is demonstrated. Upper abdomen: No abnormality seen. Osseous structures: No acute osseous abnormality. Additional findings: None. IMPRESSION: No acute cardiopulmonary abnormality.
--- NOTE | 2020-11-06 16:53 | EKG ---
Test Reason : Blood Pressure : / mmHG Vent. Rate : 073 BPM Atrial Rate : 073 BPM P-R Int : 154 ms QRS Dur : 086 ms QT Int : 402 ms P-R-T Axes : 052 012 024 degrees QTc Int : 442 ms Normal sinus rhythm with sinus arrhythmia Possible Left atrial enlargement Borderline ECG Confirmed by NU JOYNER ([id number]), field map editor GINA RAMIRES ([id number]) on 11/06/2020 4:52:56 PM Referred By: Confirmed By:NU Curiel
== END 2020-11-02 18:17 | disposition home or self-care (01) ==
LOC: ERS 16:55
DX: R00.2 Palpitations (principal); R07.89 Other chest pain; F17.210 Nicotine dependence, cigarettes, uncomplicated
CPT/HCPCS: 71045; 93005

== ENCOUNTER 2020-11-03 00:39 | Emergency (ER) | payer OTHER ==
[2020-11-03 01:31] LABS: #Basophils 0.1 thou/uL (0.0-0.2); #Eosinphils 0.4 thou/uL (0.0-0.7); #Lymphocytes 3.3 thou/uL (1.20-3.40); #Monocytes 0.7 thou/uL (0.11-0.59); #Neutrophils 4.2 thou/uL (1.40-6.50); %Eosinophils 4.1 % (0.0-10.0); %Lymphocytes 37.8 % (21.0-51.0); %Monocytes 7.8 % (0.0-10.0); %Neutrophils 49.4 % (42.0-75.0); Hemoglobin 14.3 g/dL (12.0-16.0); Mean Corpuscular HGB CONC 33.2 g/dL (32.0-36.0); Mean Corpuscular Hemoglobin 30.3 pg (27.0-31.0); Mean Platelet Volume 8.9 fL (7.4-10.4); Platelet Count 180 thou/uL (130-400); RBC Distribution Width 11.7 % (11.5-14.5); Red Blood Cell (RBC) Count 4.73 mill/uL (4.20-5.40); White Blood Cell (WBC) Count 8.6 thou/uL (4.8-10.8)
[2020-11-03 01:52] LABS: ALT (SGPT) 9 U/L (8-55); AST (SGOT) 18 U/L (5-34); Albumin 4.4 g/dL (3.5-5.0); Alkaline Phosphatase 102 U/L (40-110); Anion Gap 13 mmol/L (10-20); BUN (Urea Nitrogen) 13 mg/dL (7.0-18.7); Bilirubin, Total 0.4 mg/dL (0.2-1.2); Calc. Creatinine Clearance 0 mL/min (70-130); Calcium 9.1 mg/dL (7.8-10.44); Carbon Dioxide 25 mmol/L (22-29); Chloride 108 mmol/L (98-107); Globulin 3.3 g/dL (2.4-3.5); Glucose 74 mg/dL (70-105); Protein, Total 7.7 g/dL (6.0-8.3); Sodium 142 mmol/L (136-145)
--- NOTE | 2020-11-06 13:29 | EKG ---
Test Reason : Blood Pressure : / mmHG Vent. Rate : 067 BPM Atrial Rate : 067 BPM P-R Int : 164 ms QRS Dur : 086 ms QT Int : 388 ms P-R-T Axes : 039 024 031 degrees QTc Int : 409 ms Normal sinus rhythm Normal ECG Confirmed by MAURICE JOHNSON M.D. ([id number]), pictures editor GINA RAMIRES ([id number]) on 11/06/2020 1:29:41 PM Referred By: Confirmed By:MAURICE JOHNSON M.D.
== END 2020-11-03 03:00 | disposition home or self-care (01) ==
LOC: ERS 00:39
DX: R00.2 Palpitations (principal)
CPT/HCPCS: 36415; 71045; 80053; 84443; 85025; 93005; 94760

== ENCOUNTER 2021-01-07 15:07 | Emergency (ER) | payer OTHER ==
[2021-01-07 16:03] LABS: #Eosinphils 0.1 thou/uL (0.0-0.7); #Lymphocytes 1.9 thou/uL (1.20-3.40); #Monocytes 0.6 thou/uL (0.11-0.59); %Basophils 0.6 % (0.0-1.0); %Eosinophils 1.7 % (0.0-10.0); %Lymphocytes 25.3 % (21.0-51.0); %Monocytes 7.3 % (0.0-10.0); Hemoglobin 14.6 g/dL (12.0-16.0); Mean Corpuscular HGB CONC 33.8 g/dL (32.0-36.0); Mean Corpuscular Hemoglobin 30.8 pg (27.0-31.0); Mean Corpuscular Volume 91.3 fL (78.0-98.0); Mean Platelet Volume 8.7 fL (7.4-10.4); Platelet Count 177 thou/uL (130-400); RBC Distribution Width 11.2 % (11.5-14.5); Red Blood Cell (RBC) Count 4.73 mill/uL (4.20-5.40); White Blood Cell (WBC) Count 7.7 thou/uL (4.8-10.8)
[2021-01-07 16:05] LABS: BHCG - Serum Negative (NEGATIVE); Pregs Control Background? CLEAR/WHITE (CLR/WHITE); Pregs Control Bar Appear? YES (CONTROL BAR)
--- NOTE | 2021-01-07 16:19 | RAD ---
PA AND LATERAL CHEST: 01/07/21 HISTORY: Heart palpitations. COMPARISON: 05/23/18 exam. Heart size and mediastinum are within normal limits. Lungs appear clear of any infiltrative process. A slight pectus deformity to the chest is noted. IMPRESSION: No active intrathoracic disease. POS: [facility]
[2021-01-07 16:24] LABS: ALT (SGPT) 12 U/L (8-55); AST (SGOT) 19 U/L (5-34); Albumin 4.8 g/dL (3.5-5.0); Alkaline Phosphatase 107 U/L (40-110); Anion Gap 14 mmol/L (10-20); BUN (Urea Nitrogen) 19 mg/dL (7.0-18.7); Bilirubin, Total 0.6 mg/dL (0.2-1.2); Calc. Creatinine Clearance 0 mL/min (70-130); Calcium 9.6 mg/dL (7.8-10.44); Carbon Dioxide 24 mmol/L (22-29); Chloride 106 mmol/L (98-107); Globulin 3.6 g/dL (2.4-3.5); Glucose 82 mg/dL (70-105); Potassium 4.1 mmol/L (3.5-5.1); Protein, Total 8.4 g/dL (6.0-8.3); Sodium 140 mmol/L (136-145)
== END 2021-01-07 16:56 | disposition home or self-care (01) ==
LOC: ERS 15:07
DX: R00.2 Palpitations (principal); F17.290 Nicotine dependence, other tobacco product, uncomplicated
CPT/HCPCS: 36415; 71046; 80053; 84443; 84703; 85025; 85379; 93005

== ENCOUNTER 2021-01-27 01:41 | Emergency (ER) | payer OTHER ==
[2021-01-27 02:57] LABS: #Basophils 0.1 thou/uL (0.0-0.2); #Eosinphils 0.2 thou/uL (0.0-0.7); #Monocytes 0.9 thou/uL (0.11-0.59); %Basophils 1.4 % (0.0-1.0); %Eosinophils 2.9 % (0.0-10.0); %Monocytes 10.7 % (0.0-10.0); Hemoglobin 13.6 g/dL (12.0-16.0); Mean Corpuscular Hemoglobin 31.3 pg (27.0-31.0); Mean Platelet Volume 8.5 fL (7.4-10.4); Platelet Count 186 thou/uL (130-400); RBC Distribution Width 11.5 % (11.5-14.5); Red Blood Cell (RBC) Count 4.34 mill/uL (4.20-5.40); White Blood Cell (WBC) Count 8.2 thou/uL (4.8-10.8)
[2021-01-27 03:16] LABS: ALT (SGPT) 9 U/L (8-55); AST (SGOT) 16 U/L (5-34); Albumin 4.7 g/dL (3.5-5.0); Alkaline Phosphatase 110 U/L (40-110); Anion Gap 14 mmol/L (10-20); BUN (Urea Nitrogen) 13 mg/dL (7.0-18.7); Bilirubin, Total 0.6 mg/dL (0.2-1.2); Calc. Creatinine Clearance 0 mL/min (70-130); Calcium 9.8 mg/dL (7.8-10.44); Carbon Dioxide 27 mmol/L (22-29); Chloride 103 mmol/L (98-107); Globulin 3.4 g/dL (2.4-3.5); Glucose 93 mg/dL (70-105); Potassium 3.7 mmol/L (3.5-5.1); Protein, Total 8.1 g/dL (6.0-8.3); Sodium 140 mmol/L (136-145)
== END 2021-01-27 03:40 | disposition home or self-care (01) ==
LOC: ERS 01:41
DX: F44.9 Dissociative and conversion disorder, unspecified (principal); F17.290 Nicotine dependence, other tobacco product, uncomplicated
CPT/HCPCS: 71045; 80053; 85025; 93005

== ENCOUNTER 2021-02-10 03:07 | Emergency (ER) | payer OTHER | END 2021-02-10 04:42 | disposition home or self-care (01) | LOC: ERS 03:07 | DX: F44.9 Dissociative and conversion disorder, unspecified (principal); R00.2 Palpitations; F17.290 Nicotine dependence, other tobacco product, uncomplicated | CPT/HCPCS: 36416; 93005 ==

== ENCOUNTER 2021-02-10 23:46 | Emergency (ER) | payer OTHER | END 2021-02-11 00:53 | disposition home or self-care (01) | LOC: ERS 23:46 | DX: F44.0 Dissociative amnesia (principal); F17.290 Nicotine dependence, other tobacco product, uncomplicated | CPT/HCPCS: 99284 ==

== ENCOUNTER 2021-02-12 21:09 | Emergency (ER) | payer OTHER | END 2021-02-12 21:57 | disposition home or self-care (01) | LOC: ERS 21:09 | DX: F44.9 Dissociative and conversion disorder, unspecified (principal); F17.290 Nicotine dependence, other tobacco product, uncomplicated | CPT/HCPCS: 99284 ==

== ENCOUNTER 2021-02-13 17:21 | Emergency (ER) | payer OTHER ==
[2021-02-13 18:22] LABS: #Eosinphils 0.1 thou/uL (0.0-0.7); #Lymphocytes 1.8 thou/uL (1.20-3.40); #Monocytes 0.6 thou/uL (0.11-0.59); #Neutrophils 4.6 thou/uL (1.40-6.50); %Basophils 0.7 % (0.0-1.0); %Eosinophils 1.6 % (0.0-10.0); %Lymphocytes 25.2 % (21.0-51.0); %Monocytes 7.7 % (0.0-10.0); %Neutrophils 64.8 % (42.0-75.0); Hemoglobin 14.5 g/dL (12.0-16.0); Mean Corpuscular HGB CONC 34.3 g/dL (32.0-36.0); Mean Corpuscular Hemoglobin 31.3 pg (27.0-31.0); Mean Corpuscular Volume 91.3 fL (78.0-98.0); Mean Platelet Volume 8.8 fL (7.4-10.4); Platelet Count 165 thou/uL (130-400); RBC Distribution Width 11.5 % (11.5-14.5); Red Blood Cell (RBC) Count 4.62 mill/uL (4.20-5.40); White Blood Cell (WBC) Count 7.1 thou/uL (4.8-10.8)
[2021-02-13 18:43] LABS: ALT (SGPT) 10 U/L (8-55); AST (SGOT) 15 U/L (5-34); Albumin 4.7 g/dL (3.5-5.0); Alkaline Phosphatase 104 U/L (40-110); Anion Gap 12 mmol/L (10-20); BUN (Urea Nitrogen) 10 mg/dL (7.0-18.7); Bilirubin, Total 0.7 mg/dL (0.2-1.2); Calc. Creatinine Clearance 0 mL/min (70-130); Calcium 9.5 mg/dL (7.8-10.44); Carbon Dioxide 25 mmol/L (22-29); Chloride 104 mmol/L (98-107); Globulin 3.4 g/dL (2.4-3.5); Glucose 79 mg/dL (70-105); Potassium 3.9 mmol/L (3.5-5.1); Protein, Total 8.1 g/dL (6.0-8.3); Sodium 137 mmol/L (136-145)
== END 2021-02-13 19:08 | disposition home or self-care (01) ==
LOC: ERS 17:21
DX: R56.9 Unspecified convulsions (principal); F17.290 Nicotine dependence, other tobacco product, uncomplicated
CPT/HCPCS: 36415; 70450; 80053; 85025

== ENCOUNTER 2021-03-01 12:29 | Outpatient (CLI) | payer OTHER ==
[~2021-03-01 12:29] MED LIST: Magnevist 469MG/ML 20 ML VIAL ONE
== END 2021-03-01 12:30 | disposition home or self-care (01) ==
LOC: MRI 12:29
PROVIDERS: ATTEND Nurse Practitioner Acute Care
DX: R56.9 Unspecified convulsions (principal)
CPT/HCPCS: 70553; 95816; A9579

== ENCOUNTER 2021-03-10 18:24 | Emergency (ER) | payer OTHER ==
[2021-03-10 18:53] LABS: #Basophils 0.1 thou/uL (0.0-0.2); #Eosinphils 0.2 thou/uL (0.0-0.7); #Lymphocytes 2.8 thou/uL (1.20-3.40); #Monocytes 0.8 thou/uL (0.11-0.59); #Neutrophils 4.2 thou/uL (1.40-6.50); %Basophils 0.8 % (0.0-1.0); %Lymphocytes 34.8 % (21.0-51.0); %Monocytes 9.4 % (0.0-10.0); %Neutrophils 52.1 % (42.0-75.0); Hemoglobin 14.2 g/dL (12.0-16.0); Mean Corpuscular HGB CONC 32.5 g/dL (32.0-36.0); Mean Corpuscular Hemoglobin 29.9 pg (27.0-31.0); Mean Corpuscular Volume 92.1 fL (78.0-98.0); Mean Platelet Volume 9.1 fL (7.4-10.4); Platelet Count 176 thou/uL (130-400); RBC Distribution Width 11.2 % (11.5-14.5); Red Blood Cell (RBC) Count 4.73 mill/uL (4.20-5.40)
[2021-03-10 19:16] LABS: ALT (SGPT) 10 U/L (8-55); AST (SGOT) 19 U/L (5-34); Albumin 4.4 g/dL (3.5-5.0); Alkaline Phosphatase 100 U/L (40-110); Anion Gap 13 mmol/L (10-20); BUN (Urea Nitrogen) 10 mg/dL (7.0-18.7); Bilirubin, Total 0.5 mg/dL (0.2-1.2); Calc. Creatinine Clearance 0 mL/min (70-130); Calcium 9.4 mg/dL (7.8-10.44); Carbon Dioxide 25 mmol/L (22-29); Chloride 105 mmol/L (98-107); Globulin 3.5 g/dL (2.4-3.5); Glucose 87 mg/dL (70-105); Protein, Total 7.9 g/dL (6.0-8.3); Sodium 139 mmol/L (136-145)
== END 2021-03-10 20:54 | disposition home or self-care (01) ==
LOC: ERS 18:24
DX: R56.9 Unspecified convulsions (principal); Z87.891 Personal history of nicotine dependence; Z79.899 Other long term (current) drug therapy
CPT/HCPCS: 71045; 80053; 83605; 84146; 85025; 93005

== ENCOUNTER 2021-04-01 19:30 | Emergency (ER) | payer MEDICAID, OTHER ==
[2021-04-01] MEDS ORDERED: levETIRAcetam 500 MG TAB PO SCH (20:00)
== END 2021-04-01 20:25 | disposition home or self-care (01) ==
LOC: ERS 19:30
DX: F43.20 Adjustment disorder, unspecified (principal); Z87.891 Personal history of nicotine dependence
CPT/HCPCS: 99281